=== PATIENT | female | born 1935 | race Caucasian/White ===

== ENCOUNTER 2020-08-03 14:14 | Outpatient (REF) | payer MEDICARE, OTHER, SELFPAY ==
[2020-08-03 16:18] LABS: MANUAL DIFF FLAG NO
[2020-08-03 16:22] LABS: Basophils Absolute Auto 0.1 X10*3/uL (0.0-0.2); Basophils Percent Auto 0.8 % (0-2); Eosinophils Absolute Auto 0.2 X10*3/uL (0.0-0.4); Eosinophils Percent Auto 2.8 % (0-4); Hematocrit 39.8 % (37-47); Hemoglobin 13.4 g/dl (12.0-16.0); Imm Gran Abs Auto 0.02 X10*3/uL (0.00-0.03); Imm Gran Pct Auto 0.3 % (0.0-0.4); Lymphocytes Percent Auto 41.8 % (20-40); Mean Corpuscular HGB Conc 33.7 g/dl (31.0-35.0); Mean Corpuscular Hemoglobin 33.4 pg (27.0-33.0); Mean Corpuscular Volume 99.3 fL (80-98); Mean Platelet Volume 11.5 fL (9.4-12.3); Monocytes Absolute Auto 0.7 X10*3/uL (0.1-1.2); Monocytes Percent Auto 9.7 % (2-11); Neutrophils Absolute Auto 3.2 X10*3/uL (2.0-8.3); Neutrophils Percent Auto 44.6 % (45-73); Platelet Count 264 X10*3/uL (160-400); Red Blood Count 4.01 X10*6/uL (4.20-5.50); Red Cell Distribution Width 13.2 % (11.0-16.0); White Blood Count 7.2 X10*3/uL (4.8-10.8)
[2020-08-03 16:41] LABS: Alanine Aminotransferase 19 U/L (0-31); Albumin Level 4.3 g/dL (3.5-5.0); Alkaline Phosphatase 76 U/L (39-117); Anion Gap 14 (12-20); Aspartate Amino Transferase 21 U/L (5-31); Bilirubin Total 0.9 mg/dL (0.0-1.0); Blood Urea Nitrogen 8 mg/dL (9-16); Calcium 9.5 mg/dL (8.4-10.2); Carbon Dioxide 28 mmol/L (22-29); Chloride 105 mmol/L (96-108); Estimated Glomerular Filt Rate > 60; Glucose Random 91 mg/dL (60-115); Potassium 4.6 mmol/L (3.3-5.1); Sodium 142 mmol/L (135-145); Total Protein 6.8 g/dL (6.5-8.0)
== END 2020-08-03 14:15 | disposition home or self-care (01) ==
LOC: HO.HMGCLDS 14:14
PROVIDERS: PCP Internal Medicine; Visit Provider Internal Medicine
DX: I10 Essential (primary) hypertension (principal); R19.5 Other fecal abnormalities
CPT/HCPCS: 36415; 80053; 85025

== ENCOUNTER 2021-02-14 11:18 | Outpatient (REF) | payer MEDICARE, OTHER, SELFPAY ==
[2021-02-14 13:55] LABS: MANUAL DIFF FLAG NO
[2021-02-14 14:18] LABS: Basophils Absolute Auto 0.1 X10*3/uL (0.0-0.2); Basophils Percent Auto 0.8 % (0-2); Eosinophils Absolute Auto 0.2 X10*3/uL (0.0-0.4); Eosinophils Percent Auto 2.5 % (0-4); Hematocrit 39.6 % (37-47); Hemoglobin 13.3 g/dl (12.0-16.0); Imm Gran Abs Auto 0.01 X10*3/uL (0.00-0.03); Imm Gran Pct Auto 0.2 % (0.0-0.4); Lymphocytes Absolute Auto 2.8 X10*3/uL (1.2-4.9); Lymphocytes Percent Auto 43.7 % (20-40); Mean Corpuscular HGB Conc 33.6 g/dl (31.0-35.0); Mean Corpuscular Hemoglobin 32.8 pg (27.0-33.0); Mean Corpuscular Volume 97.8 fL (80-98); Mean Platelet Volume 11.6 fL (9.4-12.3); Monocytes Absolute Auto 0.6 X10*3/uL (0.1-1.2); Monocytes Percent Auto 10.1 % (2-11); Neutrophils Absolute Auto 2.7 X10*3/uL (2.0-8.3); Neutrophils Percent Auto 42.7 % (45-73); Platelet Count 273 X10*3/uL (160-400); Red Blood Count 4.05 X10*6/uL (4.20-5.50); Red Cell Distribution Width 13.5 % (11.0-16.0); White Blood Count 6.3 X10*3/uL (4.8-10.8)
[2021-02-14 14:54] LABS: Alanine Aminotransferase 18 U/L (0-31); Albumin Level 4.2 g/dL (3.5-5.0); Alkaline Phosphatase 73 U/L (39-117); Anion Gap 14 (12-20); Aspartate Amino Transferase 22 U/L (5-31); Bilirubin Total 0.8 mg/dL (0.0-1.0); Blood Urea Nitrogen 10 mg/dL (9-16); C Reactive Protein 0.31 mg/dL (< or = 0.50); Calcium 9.6 mg/dL (8.4-10.2); Carbon Dioxide 26 mmol/L (22-29); Chloride 106 mmol/L (96-108); Cholesterol 241 mg/dL; Estimated Glomerular Filt Rate > 60; Glucose Fasting 89 mg/dL (60-99); HDL Cholesterol 61 mg/dL; LDL Cholesterol Calculated 164 mg/dl; Potassium 4.7 mmol/L (3.3-5.1); Sodium 141 mmol/L (135-145); Total Protein 6.5 g/dL (6.5-8.0); Triglycerides 81 mg/dL
[2021-02-14 15:16] LABS: Vitamin D 25-OH Total 51.8 ng/mL (>30)
== END 2021-02-14 11:19 | disposition home or self-care (01) ==
LOC: HO.HMGCLDS 11:18
PROVIDERS: PCP Internal Medicine; Visit Provider Internal Medicine
DX: M19.90 Unspecified osteoarthritis, unspecified site (principal); I10 Essential (primary) hypertension; E78.00 Pure hypercholesterolemia, unspecified; M81.0 Age-related osteoporosis without current pathological fracture; R19.5 Other fecal abnormalities
CPT/HCPCS: 36415; 80053; 80061; 82306; 85025; 86140

== ENCOUNTER 2021-07-18 11:33 | Outpatient (REF) | payer MEDICARE, OTHER, SELFPAY ==
[2021-07-18 14:03] LABS: Cholesterol 240 mg/dL; HDL Cholesterol 57 mg/dL; LDL Cholesterol Calculated 165 mg/dl; Triglycerides 91 mg/dL
== END 2021-07-18 11:34 | disposition home or self-care (01) ==
LOC: HO.HMGCLDS 11:33
PROVIDERS: PCP Internal Medicine; Visit Provider Internal Medicine
DX: E78.00 Pure hypercholesterolemia, unspecified (principal)
CPT/HCPCS: 36415; 80061

== ENCOUNTER 2022-01-14 11:01 | Outpatient (REF) | payer MEDICARE, OTHER, SELFPAY ==
[2022-01-14 14:00] LABS: MANUAL DIFF FLAG NO
[2022-01-14 14:06] LABS: Basophils Absolute Auto 0.1 X10*3/uL (0.0-0.2); Basophils Percent Auto 1.1 % (0-2); Eosinophils Absolute Auto 0.2 X10*3/uL (0.0-0.4); Eosinophils Percent Auto 3.1 % (0-4); Hematocrit 38.1 % (37.0-47.0); Hemoglobin 12.7 g/dl (12.0-16.0); Imm Gran Abs Auto 0.01 X10*3/uL (0.00-0.03); Imm Gran Pct Auto 0.2 % (0.0-0.4); Lymphocytes Absolute Auto 2.3 X10*3/uL (1.2-4.9); Lymphocytes Percent Auto 35.3 % (20-40); Mean Corpuscular HGB Conc 33.3 g/dl (31.0-35.0); Mean Corpuscular Hemoglobin 33.2 pg (27.0-33.0); Mean Corpuscular Volume 99.7 fL (80.0-98.0); Monocytes Absolute Auto 0.6 X10*3/uL (0.1-1.2); Monocytes Percent Auto 9.6 % (2-11); Neutrophils Absolute Auto 3.3 x10*3/uL (2.0-8.3); Neutrophils Percent Auto 50.7 % (45-73); Platelet Count 309 X10*3/uL (160-400); Red Blood Count 3.82 X10*6/uL (4.20-5.50); Red Cell Distribution Width 13.4 % (11.0-16.0); White Blood Count 6.5 X10*3/uL (4.8-10.8)
[2022-01-14 14:20] LABS: Anion Gap 14 (12-20); Blood Urea Nitrogen 9 mg/dL (9-16); Calcium 9.1 mg/dL (8.4-10.2); Carbon Dioxide 26 mmol/L (22-29); Chloride 104 mmol/L (96-108); Estimated Glomerular Filt Rate > 60; Glucose Random 95 mg/dL (60-115); Potassium 4.1 mmol/L (3.3-5.1); Sodium 140 mmol/L (135-145)
== END 2022-01-14 11:02 | disposition home or self-care (01) ==
LOC: HO.HMGCLDS 11:01
PROVIDERS: PCP Internal Medicine; Visit Provider Internal Medicine
DX: I10 Essential (primary) hypertension (principal); E78.00 Pure hypercholesterolemia, unspecified; M19.90 Unspecified osteoarthritis, unspecified site
CPT/HCPCS: 36415; 80048; 85025

== ENCOUNTER 2023-01-13 10:53 | Outpatient (REF) | payer MEDICARE, OTHER, SELFPAY ==
[2023-01-13 13:04] LABS: MANUAL DIFF FLAG NO
[2023-01-13 13:15] LABS: Basophils Absolute Auto 0.1 X10*3/uL (0.0-0.2); Basophils Percent Auto 1.2 % (0-2); Eosinophils Absolute Auto 0.1 X10*3/uL (0.0-0.4); Eosinophils Percent Auto 2.3 % (0-4); Hemoglobin 13.2 g/dl (12.0-16.0); Imm Gran Abs Auto 0.01 X10*3/uL (0.00-0.03); Imm Gran Pct Auto 0.2 % (0.0-0.4); Lymphocytes Absolute Auto 2.2 X10*3/uL (1.2-4.9); Lymphocytes Percent Auto 36.5 % (20-40); Mean Corpuscular HGB Conc 33.8 g/dl (31.0-35.0); Mean Corpuscular Hemoglobin 33.2 pg (27.0-33.0); Mean Corpuscular Volume 98.2 fL (80.0-98.0); Mean Platelet Volume 10.9 fL (9.4-12.3); Monocytes Absolute Auto 0.7 X10*3/uL (0.1-1.2); Monocytes Percent Auto 10.7 % (2-11); Neutrophils Percent Auto 49.1 % (45-73); Platelet Count 281 X10*3/uL (160-400); Red Blood Count 3.97 X10*6/uL (4.20-5.50); Red Cell Distribution Width 13.5 % (11.0-16.0); White Blood Count 6.1 X10*3/uL (4.8-10.8)
[2023-01-13 13:36] LABS: Alanine Aminotransferase 10 U/L (0-31); Alkaline Phosphatase 63 U/L (39-117); Anion Gap 15 (12-20); Aspartate Amino Transferase 16 U/L (5-31); Bilirubin Total 0.8 mg/dL (0.0-1.0); Blood Urea Nitrogen 9 mg/dL (9-16); Calcium 9.4 mg/dL (8.4-10.2); Carbon Dioxide 24 mmol/L (22-29); Chloride 106 mmol/L (96-108); Cholesterol 235 mg/dL (<200); Estimated Glomerular Filt Rate > 60; Glucose Random 91 mg/dL (60-115); Potassium 3.8 mmol/L (3.3-5.1); Sodium 141 mmol/L (135-145); Total Protein 6.6 g/dL (6.5-8.0)
== END 2023-01-13 10:54 | disposition home or self-care (01) ==
LOC: HO.HMGCLDS 10:53
PROVIDERS: PCP Internal Medicine; Visit Provider Internal Medicine
DX: I10 Essential (primary) hypertension (principal); E78.00 Pure hypercholesterolemia, unspecified
CPT/HCPCS: 36415; 80053; 82465; 85025

== ENCOUNTER 2023-02-01 10:01 | Outpatient (REF) | payer MEDICARE, OTHER, SELFPAY ==
[2023-02-01 11:46] LABS: Cholesterol 236 mg/dL (<200); HDL Cholesterol 70 mg/dL (>40); LDL Cholesterol Calculated 152 mg/dL (<100); Triglycerides 72 mg/dL (<150)
== END 2023-02-01 10:02 | disposition home or self-care (01) ==
LOC: HO.HMGCLDS 10:01
PROVIDERS: PCP Internal Medicine; Visit Provider Internal Medicine
DX: E78.00 Pure hypercholesterolemia, unspecified (principal)
CPT/HCPCS: 36415; 80061

== ENCOUNTER → 2023-09-04 10:43 | Outpatient (REF) | payer MEDICARE, OTHER, SELFPAY ==
--- NOTE | 2023-09-04 10:47 | CA_ITS ---
Transthoracic Echocardiogram Patient (Last, First, Middle): Avani Lopez Maya Gender: Female Date of : 1935 Age: 87 Procedure Date: 09/04/2023 Procedure Type: Transthoracic Echocardiogram Location: OP Height: 162.56 cm Weight: 68.04 kg BSA: 1.73 m2 Heart Rate: bpm BP: 138 / 82 mmHg Glass Checker: TO Referring MD: Bassam Contreras MD Supervisor Transferring And Boxing: Ezequiel Montelongo MD Symptoms: 145.10 RBBB 149,9 CA ARRHY Study Quality: Fair ECG Rhythm: Sinus Conclusions: - 1. Normal LV ejection fraction 60 65% with impaired relaxation filling pattern 2. Mildly dilated left atrium 3. Mild aortic regurgitation 4. Upper limits of normal ascending aortic size 5. No gross pericardial effusion Findings Procedure Information The study quality is limited by the presence of bandages. Left Ventricle Normal left ventricular size, thickness, and systolic function. The visually estimated ejection fraction is between 60-65%. Spectral Doppler is indicative of an impaired relaxation filling pattern. E/E prime ratio is between 8 and 15 consistent with indeterminate filling pressures. Right Ventricle Normal right ventricular cavity size and systolic function. Atria The left atrium is mildly dilated. There is no evidence of interatrial shunt. The right atrium is likely dilated. Aortic Valve There is mild calcification of the aortic valve. There is mild thickening of the aortic valve. There is no aortic valve stenosis. There is mild aortic valve regurgitation. Mitral Valve There is mild anterior and posterior mitral leaflet thickening. There is mild mitral annular calcification. There is trace mitral valve regurgitation. There is no mitral valve stenosis. Pulmonic Valve The pulmonic valve is likely normal. There is trace pulmonic valve regurgitation. Tricuspid Valve Normal tricuspid valve structure. Tricuspid regurgitation envelope is inadequate for calculation of right ventricular systolic pressure. Normal right atrial pressure. Great Vessels The pulmonary artery was not well visualized. Small plaque is seen in the sino tubular ridge. Venous The inferior vena cava is normal in size and collapses greater than 50% with inspiration. Pericardium/Pleural There is no evidence of pericardial effusion. Prior Study Comparison No prior study available for comparison. Measurements 2D Linear Measurements IVSd: 0.82 0.6-0.9/0.6-1.0 cm LVIDd: 5.18 3.9-5.3/4.2-5.9 cm LVIDd Index: 2.99 2.4-3.2/2.2-3.1 cm/m2 LVIDs: 3.64 2.0-3.6 cm LVPWd: 0.76 0.7-1.1 cm LA Diam: 3.90 2.7-3.8/3.0-4.0 cm LAIDs Index: 2.25 1.5-2.3 cm/m2 LV Mass: 177.58 67-162/88-224 g LV Mass Index: 102.65 43-95/49-115 g/m2 LVOT Diam: 1.90 3.0+(-)1.3 cm 2D Systolic Function EF 4C: 65.80 >55% EF 2C: 58.20 >55% EF BiP: 62.00 >55% Mitral Valve MV VTI: 0.28 MV Pk Dominick: 1.06 MV Mn Dominick: 0.61 MV Pk Grad: 4.00 MV Mn Grad: 2.00 MV Pk E: 0.81 MV PK A: 0.96 MV Decel Time: 264.00 E/A: 0.80 E'Lateral: 6.20 E'Medial: 4.35 E/E' Med: 18.50 E/E' Lat: 13.00 PHT: 77.00 MVA PHT: 2.86 MVA Continuity: 2.29 Decel Fentress: 3.05 Aortic Valve AoV Pk Dominick: 1.58 AoV Mn Dominick: 1.08 AoV VTI: 0.32 AoV Pk Grad: 10.00 Aov Mn Grad: 5.00 ISAIAH Cont.VTI: 2.02 LVOT LVOT Pk Dominick: 1.02 LVOT Mn Dominick: 0.62 LVOT VTI: 0.23 LVOT Pk Grad: 4.00 LVOT Mn Grad: 2.00 LVOT Diam: 1.90 LVOT Area: 2.84 Diastolic Function MV Pk E: 0.81 MV Pk A: 0.96 E/A: 0.80 E'Medial: 4.35 E/E' Med: 18.50 E' Laterial: 6.20 E/E' Lat: 13.00 Right Ventricle TAPSE (mm): 18.30 TVS' Dominick: 12.10 Tricuspid Valve RA Press: 3.00 Great Vessels Aorta Sinus of Valsalva: 3.24 2.0-3.5 cm Ao Asc: 3.60 2.1-3.4 cm Updated in Other Vendor System with Status of Final Ezequiel Montelongo MD electronically signed on 09/05/2023 9:36:07 AM with status of Final
== END ==
LOC: HO.CARD 10:43
PROVIDERS: PCP Internal Medicine; Visit Provider Internal Medicine
DX: I45.10 Unspecified right bundle-branch block (principal); I49.9 Cardiac arrhythmia, unspecified
CPT/HCPCS: 93306

== ENCOUNTER → 2023-09-04 10:47 | Outpatient (BNV) | payer MEDICARE, OTHER, SELFPAY | PROVIDERS: PCP Internal Medicine; Visit Provider Internal Medicine Cardiovascular Disease | DX: I35.8 Other nonrheumatic aortic valve disorders (principal); I35.1 Nonrheumatic aortic (valve) insufficiency; I34.81 Nonrheumatic mitral (valve) annulus calcification | CPT/HCPCS: 93306 ==

== ENCOUNTER 2023-11-03 12:28 | Outpatient (AMB) | payer MEDICARE, OTHER, SELFPAY ==
--- NOTE | 2023-11-03 12:33 | A.OFFVIS_ITS ---
Vital Signs 11/03/23 12:40 Weight 146 lb 6.191 oz BP 128/66 Blood Pressure Location Lt brachial Position Sitting Pulse 62 Pulse Source Pulse Oximeter Intake Visit Reasons: CORRECTIONAL CASE RECORDS SUPERVISOR/Dr. 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 Patient herself does not have any cardiac history like coronary artery disease or myocardial infarction or cardiomyopathy or any other cardiac concerns. She also denies any specific symptoms like angina or shortness of breath or palpitations. It appears that EKG had shown right bundle-branch block and hence she is referred here. She is on atenolol. Unclear why. Hypertension listed in PCP note and hence that might be a reason. She also has PACs on the EKG and that might be another reason for its use as well. Patient states she has been on it for more than 10 years. [facility] Medical History (Updated 11/03/23 @ 13:05 by Yosi Walker MD) Essential hypertension Family History (Updated 11/03/23 @ 12:57 by Yosi Walker MD) Father No problems noted. Mother Breast cancer Social History (Updated 11/03/23 @ 12:44 by Tanya Salas CMA) Alcohol intake: current Comment: social drinker Patient Tobacco Use Status: Never used Tobacco Review of Systems Const Denies chills, Denies daytime sleepiness, Denies fatigue, Denies fever(s), Denies poor appetite, Denies snoring, Denies stops breathing during sleep, Denies weakness, Denies weight gain and Denies weight loss Eyes Denies loss of vision ENT Denies dizziness and Reports hearing loss Card Denies chest pain, Denies irregular heart rhythm, Denies claudication, Denies le g edema, Denies lightheadedness, Denies palpitations, Denies dyspnea on exertion and Denies orthopnea Resp Denies cough, Denies excessive phlegm production, Denies dyspnea on exertion, Denies snoring and Denies wheezing GI Denies abdominal pain, Denies hematochezia, Denies change in bowel habits, Denies nausea and Denies vomiting Denies urinary frequency and Denies dysuria Musc Denies arthralgias, Denies muscle weakness, Denies numbness and Denies other Skin/Breast Denies nail changes and Denies rash Neuro Denies Abnormal speech present, Denies dizziness, Denies loss of vision, Denies memory loss, Denies numbness and Denies weakness Psych Denies depression and Denies memory loss Endo Denies fatigue and Denies palpitations Jose Miguel/Lymph Denies easy bruising Aller/Immun Denies wheezing Physical Exam Vital Signs: Last Vital Signs Pulse 62 11/03/23 12:40 BP 128/66 11/03/23 12:40 Const General: comfortable and no acute distress Orientation/consciousness: patient oriented x3 HEENT Other: Unremarkable Head: Yes normal to inspection Neck Neck: Yes normal visual inspection Chest Chest palpation & inspection: normal inspection of the chest Resp Auscultation: clear to auscultation bilaterally Cardio Palpation: normal PMI Heart sounds: S1 normal heart sound present, S2 normal heart sound present, no gallops, no murmurs and no rubs GI Palpation (GI): Soft to palpation Back/Spine/Pelvis Other: unremarkable Skin General skin exam: no rashes or lesions noted Neuro General: patient oriented x3 Speech: No Abnormal speech present Extrem General: Yes normal to inspection Psych Mental Status: mental status grossly normal Office Procedures EKG Details: EKG with sinus rhythm at 73/Min, right bundle-branch block; T inversions in leads V1 to V3 likely related to the underlying right bundle-branch block and frequent PACs in a pattern of trigeminy. 19646-Mwfhypgxtrbttzmqh, Complete Assessment & Plan Assessment & Plan (1) Right bundle branch block: Code(s): I45.10 - Unspecified right bundle-branch block Category: Medical (2) Premature atrial contractions: Code(s): I49.1 - Atrial premature depolarization Category: Medical Plan In the recent EKG, underlying sinus rhythm with right bundle-branch block and PACs. In the recent echocardiogram, LVEF 60-65%; mild dilated left atrium and mild aortic regurgitation. Otherwise unremarkable. She has no overt cardiac symptoms. We discussed about further workup for ischemic heart disease with a stress test but she stated that she would not want anything done. We also discussed about Holter monitor because of the PACs and to assess for any other arrhythmias but again she stated that she would not want that either. Hence no specific testing ordered and no changes made in her regimen. Advised her to contact us with any ongoing concerns. Coding Level of Care Code New Pt Level 3 (55768) Diagnoses Right bundle branch block I45.10 Premature atrial contractions I49.1 CPT Codes EKG - CPT: 00728-Shkfbdfhdldyzkzgq, Complete ([id number])
[2023-11-03 12:40] VITALS: BP 128/66; PULSE 62
== END 2023-11-03 13:03 | disposition home or self-care (01) ==
PROVIDERS: PCP Internal Medicine; Visit Provider Internal Medicine
DX: I45.10 Unspecified right bundle-branch block (principal); I49.1 Atrial premature depolarization
CPT/HCPCS: 93010; 99203

== ENCOUNTER → 2023-11-03 12:28 | Outpatient (BNVA) | payer MEDICARE, OTHER, SELFPAY | PROVIDERS: PCP Internal Medicine; Visit Provider Internal Medicine | DX: I45.10 Unspecified right bundle-branch block (principal); I49.1 Atrial premature depolarization | CPT/HCPCS: 93005; 99202 ==

== ENCOUNTER 2024-02-25 10:57 | Outpatient (REF) | payer MEDICARE, OTHER, SELFPAY ==
[2024-02-25 13:14] LABS: MANUAL DIFF FLAG NO
[2024-02-25 13:26] LABS: Basophils Absolute Auto 0.1 X10*3/uL (0.0-0.2); Basophils Percent Auto 1.2 % (0-2); Eosinophils Absolute Auto 0.2 X10*3/uL (0.0-0.4); Eosinophils Percent Auto 3.2 % (0-4); Hematocrit 34.2 % (37.0-47.0); Hemoglobin 11.1 g/dl (12.0-16.0); Imm Gran Abs Auto 0.02 X10*3/uL (0.00-0.03); Imm Gran Pct Auto 0.3 % (0.0-0.4); Lymphocytes Absolute Auto 2.4 X10*3/uL (1.2-4.9); Lymphocytes Percent Auto 36.7 % (20-40); Mean Corpuscular HGB Conc 32.5 g/dl (31.0-35.0); Mean Corpuscular Hemoglobin 29.2 pg (27.0-33.0); Mean Platelet Volume 11.3 fL (9.4-12.3); Monocytes Absolute Auto 0.6 X10*3/uL (0.1-1.2); Monocytes Percent Auto 9.7 % (2-11); Neutrophils Absolute Auto 3.2 x10*3/uL (2.0-8.3); Neutrophils Percent Auto 48.9 % (45-73); Platelet Count 273 X10*3/uL (160-400); Red Cell Distribution Width 16.4 % (11.0-16.0); White Blood Count 6.6 X10*3/uL (4.8-10.8)
[2024-02-25 13:55] LABS: Anion Gap 10 (12-20)
[2024-02-25 14:04] LABS: Alanine Aminotransferase 12 U/L (0-31); Albumin Level 3.9 g/dL (3.5-5.0); Alkaline Phosphatase 70 U/L (39-117); Aspartate Amino Transferase 19 U/L (5-31); Bilirubin Total 0.5 mg/dL (0.0-1.0); Blood Urea Nitrogen 10 mg/dL (9-16); Calcium 9.4 mg/dL (8.4-10.2); Carbon Dioxide 27 mmol/L (22-29); Chloride 108 mmol/L (96-108); Cholesterol 230 mg/dL (<200); Estimated Glomerular Filt Rate > 60; Glucose Fasting 94 mg/dL (60-99); HDL Cholesterol 70 mg/dL (>40); LDL Cholesterol Calculated 148 mg/dL (<100); Potassium 4.1 mmol/L (3.3-5.1); Sodium 141 mmol/L (135-145); Thyroid Stimulating Hormone 1.27 uIU/mL (0.32-4.0); Total Protein 6.4 g/dL (6.5-8.0); Triglycerides 63 mg/dL (<150)
== END 2024-02-25 10:58 | disposition home or self-care (01) ==
LOC: HO.HMGCLDS 10:57
PROVIDERS: PCP Internal Medicine; Visit Provider Internal Medicine
DX: I10 Essential (primary) hypertension (principal); E78.00 Pure hypercholesterolemia, unspecified; M19.90 Unspecified osteoarthritis, unspecified site; R19.5 Other fecal abnormalities
CPT/HCPCS: 36415; 80053; 80061; 82378; 84443; 85025

== ENCOUNTER 2024-03-04 13:56 | Outpatient (REF) | payer MEDICARE, OTHER, SELFPAY | END 2024-03-04 13:57 | disposition home or self-care (01) | LOC: HO.SH 13:56 | PROVIDERS: Visit Provider Internal Medicine | DX: Z01.118 Encounter for examination of ears and hearing with other abnormal findings (principal); H90.3 Sensorineural hearing loss, bilateral | CPT/HCPCS: 92557 ==

== ENCOUNTER 2024-03-15 12:35 | Outpatient (REF) | payer SELFPAY | END 2024-03-15 12:36 | disposition home or self-care (01) | LOC: HO.HAP 12:35 | PROVIDERS: Visit Provider Internal Medicine | DX: Z46.1 Encounter for fitting and adjustment of hearing aid (principal); H90.3 Sensorineural hearing loss, bilateral | CPT/HCPCS: 92590 ==

== ENCOUNTER 2024-04-26 14:11 | Outpatient (REF) | payer MEDICARE, OTHER, SELFPAY ==
--- NOTE | 2024-04-27 08:07 | MHC.AU.HA2 ---
Hearing Instrument Fitting- Adult- Binaural Date of Visit: 04/26/23 Hearing Instruments Dispensed: Right Ear: Manuel, Model, Color, Serial Number: Giuseppe Arce [address] KEEN S#[id number] Maintenance Worker Repair Warranty: 04/22/2027 Maintenance Worker Loss and Damage Warranty: 04/22/2027 [facility] Service Plan: n/a Battery Size: Rechargeable Type of Wax Guard: hearclear Left Ear: Model Manuel, Color, Serial Number: Giuseppe Arce [address] KEEN S#[id number] Maintenance Worker Repair Warranty: 04/22/2027 Maintenance Worker Loss and Damage Warranty: 04/22/2027 [facility] Service Plan: n/a Battery Size: Rechargeable Type of Wax Guard: hearclear Accessories/Assistive Technology: Giuseppe custom deboning team leader S#[id number] Warranty 04/22/2027 Summary of Fitting: Maya visited for fitting with new custom rechargeable hearing aids. Programmed and verified to DSL 5.0 real ear targets. Feedback notch noted at 500 Hz left ear. Reduced gain in both ears for patient comfort as she was initially quite overwhelmed, particularly by her own voice. Discussed adjustment period at length, patient demonstrated understanding. Practiced insertion/removal, charging. Pt initially requested VC active but was not able to insert aids without accidentally pressing; VC AND POWER ON/OFF IS DISABLED. Will review cleaning/wax guards at follow up, revisit push button. Ordering removal lines from [facility] to have at follow up in case of removal difficulty given tight fit. Reviewed purchase agreement, patient signed medical waiver as she does not wish to see ENT. Billing [facility] directly per KG, patient sent to front to pay her portion. Recommended follow up in 2-3 weeks but Maya does not like to have more than one dr appt per week, will not return for closer to 4-5 weeks. Encouraged to call if issues arise, pt aware of return period. Recommendations: Recommendations: A hearing instrument follow-up is recommended in 2-3 weeks. Diagnosis Code(s): Primary Diagnosis: H90.A32 Mixed HL, Unilateral, Left Ear, W/Restricted Contralateral Secondary Diagnosis: H90.A21 SNHL, Unilateral Right Ear, W/Restricted Contralateral Hearing Signature: Provider: Rosalia Chua, [facility]
== END 2024-04-26 14:12 | disposition home or self-care (01) ==
LOC: HO.HAP 14:11
PROVIDERS: Visit Provider Internal Medicine
DX: Z46.1 Encounter for fitting and adjustment of hearing aid (principal); H90.A32 Mixed conductive and sensorineural hearing loss, unilateral, left ear with restricted hearing on the contralateral side
CPT/HCPCS: V5259; V5299

== ENCOUNTER 2024-05-20 13:50 | Outpatient (REF) | payer SELFPAY ==
--- OUTSIDE RECORDS SUMMARY | 2024-05-20 17:40 | XMS_ITS ---
Author Organization [facility] stacy [place] Address [address] [place] [place] [address] Care Team Providers Care [employer] Operator Name Role Phone Bassam Contreras MD Primary Care Provider Unavaila Cruz Sun Unavailable [phone] Allergies Allergen (clinical drug ingredient) Drug/Non Drug Allergy documented on EMR Reaction Allergy Type Onset Date Status erythromycin Erythromycin Unknown Drug Allergy A ctive REASON FOR VISIT At Risk Footcare, Painful Nail(s) aggravated by shoes and causing difficulty standing/walking. Medications Medication SIG (Take, Route, Fr equency, Duration) Notes Start Date End Date Status Atenolol 25 MG 1 tablet Orally Once a day Active Multivitamin Active Social History Tobacco Use: Social History Observation Description Date Details (start date - stop date) Never Smoker NA - NA Tobacco Use/Smoking Question Answer Notes Are you a: nonsmoker Additional Findings: Tobacco Non-User Current no n-smoker Alcohol Screen Question Answer Notes Did you have a drink containing alcohol in the p ast year? Yes Points 0 Interpretation Negative Tobacco use other than smoking: Question Answer Notes Are you an other tobacco user? No Vital Signs Height 5 ft 4 in in 02/03/2024 Weight 147 lbs 02/03/2024 BMI 25.23 kg/m2 02/03/2024 Blood pressure systolic 130 mm Hg 02/03/20 24 Blood pressure diastolic 55 mm Hg 024 Procedures Procedure Date Ordered Date Performed Result Body Sit e 37686-SLFDVWT NAIL, 6 OR MORE 02/03/2024 N/A 39245-OLTS SKIN LESIONS, 2 TO 4 02/03/2024 N/A Encounters Encounter Location Date Provider Diagnosis [facility] [address] [address] 02/03/2024 Cruz Ansari Atherosclerosis of [place] artery of both lower extremities, with unspecified presence of clinical manifestation I70.203 ; Tinea unguium B35.1 ; Pain in right toe(s) M79.674 and Pain in left toe(s) M79.675 Assessments Encounter Date Diagnosis (ICD Code) Assessment Notes Treatment Notes Treatment Clinical Notes Section Notes 02/03/2024 Atherosclerosis of [place] artery of both lower extremities, with unspecified presence of clinical manifestation (ICD-10 - I70.203) Q7(A), Q8(2B), Q9(1B,2C) 02/03/2024 Tinea unguium (ICD-10 - B35.1) 02/03/2024 Pain in right toe(s) (ICD-10 - M79.674) 02/03/2024 Pain in left toe(s) (ICD-10 - M79.675) Plan Of Treatment Pending Test Test Name Order Date 46459-YFUOSLL NAIL, 6 OR MORE 02/03/2024 58526-EHCB SKIN LESIONS, 2 TO 4 02/03/20 24 Next Appt Details Follow Up: prn, Reason: Provider Name:Cruz Ansari , 08/10/2024 11:30:00 AM, [address] [place] [address], [id number], Procedure Notes * Category Sub-Category Detail Notes Debride Nail 6-10 Nail debridement Performance o f this nail treatment by a nonprofessional would put this patients foot and overall health at risk. Therefore, nail debridement was performed extensively to reduce/remove overall nail length, girth, thickness, subungual debris, and necrotic tissue, by manual and/or electrical means through the use of a nail nipper and/or dremel-type watch crystal grinder, to a more viable healthy nail plate or bed tissue 6-10. Silver nitrate used for any petechial bleeding as necessary. Definitive antifungal treatment options have been reviewed and discussed with the patient. The patient chooses, no pharmaceutical tx - 90377 Keratoma Treatment Parring or Cutting o f Benign Hyperkeratotic Lesion(s) (-56) 2-4 Lesions - The Benign hyperkeratotic lesions, as described above were pared, and/or cut utilizing a sterile 15 blade, tissue nippers, and/or dremel - 04043 , Q8 Progress Notes * Avani MARTINnneDOB: [birth year] (88 yo F)Acc No.[id number]:02/03/2024 Progress Note Patient:Avani Brooks Provider:?Cruz Ansari DPM :1935???Age:88 Y???Sex:Female D ate:02/03/2024 Address:[address] [place], [place] [address] Pcp:Bassam Contreras MD Subjective: * Chief Complaints: * ???At Risk FootcarePainful N ail(s) aggravated by shoes and causing difficulty standing/walking. * HPI: ???At Risk footcare:?Pt States Last PCP Visit:?Date?07/30/2023 * ROS:?General/Constitutional:?Nausea?denies.?Vomiting?denies.?Hunger Thirst?denies.?Loss appetite?denies.?Chills?denies.?Fatigue?denies.?Fever?denies.?Night Sweats?denies.?Unexplained weight loss?denies.?Unexplained weight gain?denies.?HEENTM:?Dentures?denies.?Dizziness?denies.?Glasses/contacts?admits.?Retinopathy?de nies.?Blurred/double vision?denies.?TMJ?denies.?Discharge/drainage?denies.?Implants?denies.?Sore throat?denies.?Dental implants?denies.?Hard of hearing ?denies.?Difficulty chewing/swallowing/speaking?denies.?Nose bleeds?denies.?Sore mouth?denies.?Respiratory:?On Oxygen?denies.?Pneumonia/pleurisy?denies.?Bronchitis?denies.?Emphysema?denies.?C oughing?denies.?Cough blood?denies.?Shortness of breath?denies.?Wheezing?denies.?Cardiovascular:?Pacemaker?denies.?MVP?denies.?WPW?denies.?CHF?denies.?Heart attack?denies.?Septal defect?denies.?Rapid beat?denies.?Chest pain ?denies.?Atrial Fib.?denies.?Murmur/Palpitations?denies.?Gastrointestinal:?Hemorrhoids?denies.?Stomach/Abdominal pain?denies.?Dark blood stool?denies.?Irritable bowel ?denies.?Constipation?denies.?Diarrhea?denies.?Hematology:?Swelling?admits.?Clots?denies.?Varicose Veins?admits.?Bruising?denies.?Bleeding problem?denies.?Genitourinary:?Blood urine?denies.?Frequent/Painfu/urination/bladder control?denies.?Kidney stones?denies.?Infection (UTI)?denies.?Nephropathy?denies.?sex trans dis (STD)?denies.?Prostate?denies.?Musculoskeletal:?Hammertoes?admits.?Bunions?admits.?Back Pain?denies.?Muscle Cramps/ Resting?denies.?Muscle cramps / walking?denies.?Generalized aches and pains?denies.?Weakness?denies.?Integ.:?Van?admits.?Scars?denies.?Corns/calluses?admits.?Ingrown nails?admits.?Painful nails?admits.?Open Sores?denies.?Rashes?denies.?Neurologic:?Difficulty sleeping?denies.?Brain disorder?denies.?Numbness?denies.?Balance trouble?denies.?Confusion?denies.?Fainting/blackouts?denies.?Tingling?denies.?Tr emors?denies.? * Medical History:? * Surgical History:?Denies Pas t Surgical History * Hospitalization/Major Diagno stic Procedure:?Denies Past Hospitalization * Family History:?Mother: dece ased.?Father: .? * Social History:?Tobacco Use:?Tobacco Use/Smoking?Are you a:?nonsmoker ?Additional Findings: Tobacco Non-User?Current non-smoker ?Tobacco use other than smoking?Are you an other tobacco user??No ???Drugs/Alcohol:?Drugs?Have you used drugs other than those for medical reasons in the past 12 months??No ?Alcohol Screen?Did you have a drink containing alcohol in the past year??Yes ?Points?0 ?Interpretation?Negative ???Miscellaneous:?Caffeine: yes, 2-3 cups per day. ?Children: yes, 1. ?no Exercise. ?Marital status: . ?Occupation: Unemployed. * Medications:?TakingMultivita min Atenolol 25 MG Tablet 1 tablet Orally Once a dayMedication List reviewed and reconciled with the patientTaking Multivitamin Taking Atenolol 25 MG Tablet 1 tablet Orally Once a dayMedication List reviewed and reconciled with the patient * Allergies:?Erythromycinyes[A llergies Verified] Objective: * Vitals:?Ht: 5 ft 4 in, Wt: 1 47, BMI: 25.23, Shoe size: 8.5W-9, BP: 130/55 mm Hg, Ht-cm: 162.56 cm, Wt-k.68 kg. * Examination: ???Vascular: ?DP PULSES(B):? 0/4, B/L.?PT PULSES(B):? 0/4, B/L.?CAPILLARY FILL TIME:? delayed, all digits, B/L.?TROPHIC CONDITION-TEXTURE/ELASTICITY/TURGOR/HAIR GROWTH(B):? decreased, with sparse to absent hair growth, B/L.?TEMPERTURE GRADIENT(C):? decreased, cool to cool, proximal to distal, B/L.?PIGMENTATION:?mottled, B/L.?EDEMA(C):?1/4 , non-pitting , without aching pain , Leg(s) , Ankle(s) , Foot , B/L.?CLAUDICATION(C):?denies, B/L.?REST PAIN:?denies, B/L.?Nails: ?NAILS are:? Elongated, overgrown, dystrophic, lytic, greater than 3mm thick, discolored and friable with crumbly malodorous subungual debris, with pain on palpation, T1, T2, T3, T6, T7, T8, remaining nails are elongated, overgrown, dystrophic.?Dermatologic: ?SKIN FINDINGS:?Skin exam reveals Keratotic lesion(s) located at , Plantar, T2, SUB MTH (s) , 1 , B/L.? Assessment: * Assessment: 1.?Tinea unguium - B35.1?2.? Atherosclerosis of [place] artery of both lower extremities, with unspecified presence of clinical manifestation - I70.203, Q7(A), Q8(2B), Q9(1B,2C)?3.?Pain in right toe(s) - M79.674?4.?Pain in left toe(s) - M79.675? Plan: * Treatment: 2.?Atherosclerosis of [place] artery of both lower extremities, with unspecified presence of clinical manifestation?Procedure: 88248-PZNE SKIN LESIONS, 2 TO 4 * Procedures:?Debride Nail 6-10:?Nail debridement?Performance of this nail treatment by a nonprofessional would put this patients foot and overall health at risk. Therefore, nail debridement was performed extensively to reduce/remove overall nail length, girth, thickness, subungual debris, and necrotic tissue, by manual and/or electrical means through the use of a nail nipper and/or dremel-type watch crystal grinder, to a more viable healthy nail plate or bed tissue 6-10. Silver nitrate used for any petechial bleeding as necessary. Definitive antifungal treatment options have been reviewed and discussed with the patient. The patient chooses, no pharmaceutical tx - 64510.?Keratoma Treatment:?Parring or Cutting of Benign Hyperkeratotic Lesion(s)?(-56) 2-4 Lesions - The Benign hyperkeratotic lesions, as described above were pared, and/or cut utilizing a sterile 15 blade, tissue nippers, and/or dremel - 43265 , Q8.? * Procedure Codes:?59473 DEBRI DE NAIL, 6 OR MORE, Modifiers: XS 25205 TRIM SKIN LESIONS, 2 TO 4, Modifiers: XS , Q8 * Follow Up:?prn * Images: * Sign off status: Completed true * Provider:?Cruz Ansari DPM Date:?2023 Generated for Apoorva sharif/Jonathan/Pippa on:?05/20/2024 05:40 PM EST History and Physical Notes * HPI (History of Present Illness) Category Sub-Category Detail Notes Category Not es At Risk footcare Pt States Last PCP Visit: Date: Examination Category Sub-Category Detail Notes Category Not es Dermatologic SKIN FINDINGS: Skin exam reveal s Keratotic lesion(s) located at , Plantar, T2, SUB MTH (s) , 1 , B/L Vascular DP PULSES (B): 0/4, B/L PT PULSES (B): 0/4, B/L CAPILLARY FILL TIME: delayed, all digits , B/L TEMPERTURE GRADIENT (C): decreased, cool to cool, proximal to distal, B/L TROPHIC CONDITION-TEXTURE/ELASTICITY/TURGOR/HAIR GROWTH (B): decreased, with sparse to absent hair gr owth, B/L EDEMA (C): 1/4 , non-pitting , without aching pain , Leg(s) , Ankle(s) , Foot , B/L CLAUDICATION (C): denies, B/L REST PAIN: denies, B/L PIGMENTATION: mottled, B/L Nails NAILS are: Elongated, overg rown, dystrophic, lytic, greater than 3mm thick, discolored and friable with crumbly malodorous subungual debris, with pain on palpation, T1, T2, T3, T6, T7, T8, remaining nails are elongated, overgrown, dystrophic
--- OUTSIDE RECORDS SUMMARY | 2024-05-20 17:40 | XMS_ITS | Patient Health Record ---
Author Organization [facility] Address [address] [place] [address] Care Team Providers Care Cement Conveyor Operator Name Role Phone Ben LUJAN, Bassam Primary Care Provider Cruz Weathers Unavailable [phone] Alfa Higgins Unavailable [phone] Allergies Allergen (clinical drug ingredient) Drug/Non Drug Allergy documented on EMR Reaction Allergy Type Onset Date Status Erythromycin Unknown Drug Allergy Acti ve Reason For Referral No Information Medications Medication SIG (Take, Route, Fr equency, Duration) Notes Start Date End Date Status Atenolol 25 MG 1 tablet Orally Once a day Active Multivitamin Active Social History Tobacco Use: Social History Observation Description Date Details (start date - stop date) Never Smoker NA - NA Alcohol Screen Question Answer Notes Did you have a drink containing alcohol in the p ast year? Yes Points 0 Interpretation Negative Tobacco use other than smoking: Question Answer Notes Are you an other tobacco user? No Tobacco Control (Standard) Question Answer Notes Tobacco use: Nonsmoker Additional Findings: Tobacco non-user Current no nsmoker Problems Problem Type SNOMED Code ICD Code Onset Dates Problem Status W/U Status Risk Notes Problem Atherosclerosis of nikolski arteries of the extremities ([id number]) Atherosclerosis of nikolski artery of both lower extremities, with unspecified presence of clinical manifestation (I70.203) Active confirmed Q7(A), Q8(2B), Q9(1B,2 C) Vital Signs Blood pressure diastolic 55 mm Hg 02/03/2024 Height 5 ft 4 in in 02/03/2024 Blood pressure systolic 130 mm Hg 02/03/2024 Weight 147 lbs 02/03/2024 BMI 25.23 kg/m2 02/03/2024 Procedures Procedure Date Ordered Date Performed Result Body Sit e 13994-VYVJSOU NAIL, 6 OR MORE 10/28/2023 N/A 59688-LAWA SKIN LESIONS, 2 TO 4 10/28/2023 N/A 88112-AFMXQDT NAIL, 6 OR MORE 02/03/2024 N/A 14491-SJXI SKIN LESIONS, 2 TO 4 02/03/2024 N/A 69623-YYOICWT NAIL, 6 OR MORE 05/04/2024 N/A 62727-QRSG SKIN LESIONS, 2 TO 4 05/04/2024 N/A Encounters Encounter Location Date Provider Diagnosis [address] [address] 10/28/2023 Cruz Ansari Atherosclerosis of nikolski artery of both lower extremities, with unspecified presence of clinical manifestation I70.203 ; Tinea unguium B35.1 ; Pain in right toe(s) M79.674 ; Pain in left toe(s) M79.675 ; Pain in left ankle and joints of left foot M25.572 ; Bursitis of left foot M77.52 ; Hallux valgus (acquired), left foot M20.12 ; Pain in right ankle and joints of right foot M25.571 ; Bursitis of right foot M77.51 and Hallux valgus (acquired), right foot M20.[address] [address] 02/03/2024 Cruz Ansari Atherosclerosis of nikolski artery of both lower extremities, with unspecified presence of clinical manifestation I70.203 ; Tinea unguium B35.1 ; Pain in right toe(s) M79.674 and Pain in left toe(s) M79.[address] [address] 05/04/2024 Cruz Ansari Atherosclerosis of nikolski artery of both lower extremities, with unspecified presence of clinical manifestation I70.203 ; Tinea unguium B35.1 ; Pain in right toe(s) M79.674 and Pain in left toe(s) M79.[address] [address] 09/24/2023 Cruz Ansari Assessments Encounter Date Diagnosis (ICD Code) Assessment Notes Treatment Notes Treatment Clinical Notes Section Notes 10/28/2023 Tinea unguium (ICD-10 - B35.1) 10/28/2023 Atherosclerosis of nikolski artery of both lower extremities, with unspecified presence of clinical manifestation (ICD-10 - I70.203) 02/03/2024 Tinea unguium (ICD-10 - B35.1) 02/03/2024 Atherosclerosis of nikolski artery of both lower extremities, with unspecified presence of clinical manifestation (ICD-10 - I70.203) Q7(A), Q8(2B), Q9(1B,2C) 05/04/2024 Tinea unguium (ICD-10 - B35.1) 05/04/2024 Atherosclerosis of nikolski artery of both lower extremities, with unspecified presence of clinical manifestation (ICD-10 - I70.203) Q7(A), Q8(2B), Q9(1B,2C) 05/04/2024 Pain in right toe(s) (ICD-10 - M79.674) 02/03/2024 Pain in right toe(s) (ICD-10 - M79.674) 10/28/2023 Pain in right toe(s) (ICD-10 - M79.674) 10/28/2023 Pain in left toe(s) (ICD-10 - M79.675) 02/03/2024 Pain in left toe(s) (ICD-10 - M79.675) 05/04/2024 Pain in left toe(s) (ICD-10 - M79.675) 10/28/2023 Pain in left ankle and joints of left foot (ICD-10 - M25.572) 10/28/2023 Bursitis of left foot (ICD-10 - M77.52) 10/28/2023 Hallux valgus (acquired), left foot (ICD-10 - M20.12) 10/28/2023 Pain in right ankle and joints of right foot (ICD-10 - M25.571) 10/28/2023 Bursitis of right foot (ICD-10 - M77.51) 10/28/2023 Hallux valgus (acquired), right foot (ICD-10 - M20.11) Plan Of Treatment Pending Test Test Name Order Date 80148-TGENUBD NAIL, 6 OR MORE 10/28/2023 39291-EQQDVLD NAIL, 6 OR MORE 02/03/2024 74133-CMXTBDB NAIL, 6 OR MORE 05/04/2024 11306-WNOY SKIN LESIONS, 2 TO 4 05/04/19 78260-OIAR SKIN LESIONS, 2 TO 4 02/03/20 50736-ETBO SKIN LESIONS, 2 TO 4 10/28/19 Next Appt Details Provider Name:Cruz Ansari , 08/10/2024 11:30:00 AM, [address] [facility], [place], [address], Insurance Providers Payer Name Payer Address Payer Phone Subscriber Number Group Number Insured Name Patient Relationship to Insured Coverage Start Date Coverage End Date Medicare National Govt Svcs Inc [address] [facility] [place] [address] [id number] Avani Lopez Self - patient is the insured [facility] ([facility]) [address] [place], [place] [id number] [id number] Avani Lopez Self - patient is the insured Medical (General) History Medical History History ICD Code Macular degeneration Measles Mumps Chicken pox Hypertension shots in eye every 7 weeks left Surgical History Surgery Date(Month/Year)
--- OUTSIDE RECORDS SUMMARY | 2024-05-20 17:40 | XMS_ITS ---
Author Organization [facility] Address [address] [place] [address] Care Team Providers Care Sack Department Supervisor Name Role Phone Bassam Contreras MD Primary Care Provider Unavaila Cruz Sun Unavailable [phone] Alfa Higgins [phone] Encounters Encounter Location Date Provider Diagnosis [address] [address] 10/29/2023 Alfa Higgins Plan Of Treatment Next Appt Details Provider Name:Cruz Ansari , 08/10/2024 11:30:00 AM, [address] [place] [address], [address], Progress Notes * Avani MARTINeDOB: [birth year] (88 yo F)Acc No.[id number]:10/29/2023 Progress Notes Patient:?Avani MARTIN Provider:?Alfa Higgins DPM :1935???Age:87 Y???Sex:Female D ate:10/29/2023 [facility] [address] [facility] [place] Pcp:Bassam Contreras MD Subjective: * Chief Complaints: * ??? * Medical History:? Objective: * Vitals:? Assessment: Plan: * Treatment: * Images: * The named appointment provid er may or may not be the originator of this progress note, and it is not deemed complete until electronically signed by the appointment provider. Sign off status: Pending * Provider:Doron Higgins DPM Date:? 024 Generated for Apoorva sharif/Jonathan/Pippa on:?05/20/2024 05:40 PM EST
--- OUTSIDE RECORDS SUMMARY | 2024-05-20 17:41 | XMS_ITS ---
Author Organization [facility] Address [address] [place] [address] Care Team Providers Care Business Solution Analyst Name Role Phone Bassam Contreras MD Primary Care Provider Cruz Weathers Unavailable [phone] Allergies Allergen (clinical drug ingredient) Drug/Non Drug [...] Additional Findings: Tobacco non-user Current no nsmoker Procedures Procedure Date Ordered Date Performed Result Body Sit e 52215-KNPLZDX NAIL, 6 OR MORE 05/04/2024 N/A 92662-BNYP SKIN LESIONS, 2 TO 4 05/04/2024 N/A Encounters Encounter Location Date Provider Diagnosis [facility] [address] [place] [address] 05/04/2024 Cruz Ansari Atherosclerosis of hamilton artery of both lower extremities, with unspecified presence of clinical manifestation I70.203 ; Tinea unguium B35.1 ; Pain in right toe(s) M79.674 and Pain in left toe(s) M79.675 Assessments Encounter Date Diagnosis (ICD Code) Assessment Notes Treatment Notes Treatment Clinical Notes Section Notes 05/04/2024 Atherosclerosis of hamilton artery of both lower extremities, with unspecified presence of clinical manifestation (ICD-10 - I70.203) Q7(A), Q8(2B), Q9(1B,2C) 05/04/2024 Tinea unguium (ICD-10 - B35.1) 05/04/2024 Pain in right toe(s) (ICD-10 - M79.674) 05/04/2024 Pain in left toe(s) (ICD-10 - M79.675) Plan Of Treatment Pending Test Test Name Order Date 71919-RGYQVJY NAIL, 6 OR MORE 05/04/2024 11515-JMMO SKIN LESIONS, 2 TO 4 05/04/19 25 Next Appt Details Follow Up: prn, Reason: Provider Name:Cruz Ansari , 08/10/2024 11:30:00 AM, [address] [place] [address], [phone], Procedure Notes * Category Sub-Category Detail Notes Debride Nail 6-10 Nail debridement Due to the cl inical pathology outlined in the exam findings, performance of this nail treatment is medically necessary as its management by an unskilled/untrained nonprofessional would put this patients foot and overall health at risk. Therefore, debridement to affected nail(s), as described in exam ( T1, T2, T3, T6, T7, T8), was performed exclusively by the physician of record to reduce/remove overall nail length, girth, thickness, subungual debris, and necrotic tissue, by manual and/or electrical means through the use of a nail nipper and/or dremel-type mud grinder, to a more viable healthy nail plate or bed tissue 6-10 nails in total. Silver nitrate was used for any petechial bleeding as necessary. Definitive antifungal treatment options, both pharmaceutical and surgical, have been reviewed and discussed with the patient. The patient solely prefers the use of intermittent/as needed professional debridement services for their nail condition and understands the need for additional periodic treatments to maintain effectiveness in symptomatic relief - Keratoma Treatment Parring or Cutting o f Benign Hyperkeratotic Lesion(s) (-56) 2-4 Lesions - Due to the at risk nature of the patients medical condition as documented in the exam findings, performance of this keratoderma treatment is medically necessary as its management by an unskilled/untrained nonprofessional would put this patients foot and overall health at risk. Therefore, the benign hyperkeratotic lesions, ( 3 ) in total, locations as stated and described in the exam ( Plantar, T2, SUB MTH (s) , 1 , B/L), were pared, and/or cut utilizing a sterile 15 blade, tissue nippers, and/or power dremel instrumentation by the physician of record - 36205, Q8 Progress Notes * Avani MARTIN AdamaeDOB: [birth year] (88 yo F)Acc No.[id number]:05/04/2024 Progress Note Patient:?Avani MARTINnne Provider:?Cruz Ansari DPM :1935???Age:88 Y???Sex:Female D ate:05/04/2024 Address:[address] [place] [address] [facility] Pcp:Bassam Contreras MD Subjective: * Chief Complaints: * ???At Risk FootcarePainful N ail(s) aggravated by shoes and causing difficulty standing/walking. * HPI: ???At Risk footcare:?Pt States Last PCP Visit:?Date?01/30/2024 * ROS:?General/Constitutional:?Nausea?denies.?Vomiting?denies.?Hunger Thirst?denies.?Loss appetite?denies.?Chills?denies.?Fatigue?denies.?Fever?denies.?Night Sweats?denies.?Unexplained weight loss?denies.?Unexplained [...] dece ased.?Father: .? * Social History:?Tobacco Use:?Tobacco use other than smoking?Are you an other tobacco user??No ?Tobacco Control (Standard)?Tobacco use:?Nonsmoker ?Additional Findings: Tobacco non-user?Current nonsmoker ???Drugs/Alcohol:?Drugs?Have you used drugs other than those for medical reasons in the past 12 months??No ?Alcohol Screen?Did you have a drink containing alcohol in the past year??Yes ?Points?0 ?Interpretation?Negative ???Miscellaneous:?Caffeine: yes, 2-3 cups per day. ?Children: yes, 1. ?Exercise: no. ?Marital status: . ?Occupation: Unemployed. * Medications:?TakingMultivita min Atenolol 25 MG Tablet 1 tablet Orally Once a day Medication List reviewed and reconciled with the patientTaking Multivitamin Taking Atenolol 25 MG Tablet 1 tablet Orally Once a day Medication List reviewed and reconciled with the patient * Allergies:?Erythromycinyes[A llergies Verified] Objective: * Vitals:? * Examination: ???Vascular: ?DP PULSES (B):? 0/4, B/L.?PT PULSES (B):? 0/4, B/L.?CAPILLARY FILL TIME:? delayed, all digits, B/L.?TROPHIC CONDITION-TEXTURE/ELASTICITY/TURGOR/HAIR GROWTH (B):? decreased, with sparse to absent hair growth, B/L.?TEMPERTURE GRADIENT (C):? decreased, cool to cool, proximal to distal, B/L.?PIGMENTATION:?mottled, B/L.?EDEMA (C):?1/4 , non-pitting , without aching pain , Leg(s) , Ankle(s) , Foot , B/L.?CLAUDICATION (C):?denies, B/L.?REST PAIN:?denies, B/L.?Nails: ?NAILS are:? Elongated, overgrown, dystrophic, lytic, greater than 3mm thick, discolored and friable with crumbly malodorous subungual debris, with pain on palpation, T1, T2, T3, T6, T7, T8, remaining nails are elongated, overgrown, dystrophic.?Dermatologic: ?SKIN FINDINGS:?Skin exam reveals Keratotic lesion(s) located at , Plantar, T2, SUB MTH (s) , 1 , B/L.? Assessment: * Assessment: 1.?Tinea unguium - B35.1???2 .?Atherosclerosis of hamilton artery of both lower extremities, with unspecified presence of clinical manifestation - I70.203 (Primary)???Notes :Q7(A), Q8(2B), Q9(1B,2C)???3.?Pain in right toe(s) - M79.674???4.?Pain in left toe(s) - M79.675??? Plan: * Treatment: 2.?Tinea unguium?Procedure: 16616-OXRINVD NAIL, 6 OR MORE * Procedures:?Debride Nail 6-10:?Nail debridement?Due to the clinical pathology outlined in the exam findings, performance of this nail treatment is medically necessary as its management by an unskilled/untrained nonprofessional would put this patients foot and overall health at risk. Therefore, debridement to affected nail(s), as described in exam (?T1,?T2,?T3,?T6,?T7,?T8), was performed exclusively by the physician of record to reduce/remove overall nail length, girth, thickness, subungual debris, and necrotic tissue, by manual and/or electrical means through the use of a nail nipper and/or dremel-type mud grinder, to a more viable healthy nail plate or bed tissue 6-10 nails in total. Silver nitrate was used for any petechial bleeding as necessary. Definitive antifungal treatment options, both pharmaceutical and surgical, have been reviewed and discussed with the patient. The patient solely prefers the use of intermittent/as needed professional debridement services for their nail condition and understands the need for additional periodic treatments to maintain effectiveness in symptomatic relief - 08223.?Keratoma Treatment:?Parring or Cutting of Benign Hyperkeratotic Lesion(s)?(-56) 2-4 Lesions - Due to the at risk nature of the patients medical condition as documented in the exam findings, performance of this keratoderma treatment is medically necessary as its management by an unskilled/untrained nonprofessional would put this patients foot and overall health at risk. Therefore, the benign hyperkeratotic lesions, ( 3 ) in total, locations as stated and described in the exam (?Plantar,?T2,?SUB MTH (s)?,?1?,?B/L), were pared, and/or cut utilizing a sterile 15 blade, tissue nippers, and/or power dremel instrumentation by the physician of record - 53996, Q8.? * Procedure Codes:?66756 DEBRI DE NAIL, 6 OR MORE, Modifiers: XS 37718 TRIM SKIN LESIONS, 2 TO 4, Modifiers: XS , Q8 * Follow Up:?prn * Images: * Sign off status: Completed true * Provider:Karen Ansari DPM Date:?2024 Generated for Apoorva sharif/Jonathan/eTranmargy on:?05/20/2024 05:40 PM EST History and Physical [...]
== END 2024-05-20 13:51 | disposition home or self-care (01) ==
LOC: HO.HAP 13:50
PROVIDERS: Visit Provider Internal Medicine
DX: Z13.89 Encounter for screening for other disorder (principal)

== ENCOUNTER 2024-06-22 11:06 | Outpatient (REF) | payer SELFPAY ==
--- OUTSIDE RECORDS SUMMARY | 2024-06-22 13:57 | XMS_ITS ---
Author Organization [facility] Address [address] [place] [address] Care Team Providers Care Elder Counselor Name Role Phone Bassam Contreras MD Primary Care Provider Unavaila Cruz Sun Unavailable [phone] Alfa Higgins [phone] Encounters Encounter Location Date Provider Diagnosis [address] [address] 10/29/2023 Alfa Higgins Plan Of Treatment Next Appt Details Provider Name:Cruz Ansari , 08/10/2024 11:30:00 AM, [address] [place] [address], [address], Progress Notes * Avani MARTINeDOB: [birth year] (88 yo F)Acc No.[id number]:10/29/2023 Progress Notes Patient:?Avani MARTIN Provider:?Alfa Higgins DPM :1935???Age:87 Y???Sex:Female D ate:10/29/2023 [facility] [address] [facility] [place] [place] Pcp:Bassam Contreras MD Subjective: * Chief Complaints: [...] DPM Date:? 024 Generated for Apoorva sharif/Jonathan/Pippa on:?06/22/2024 01:57 PM EST
--- OUTSIDE RECORDS SUMMARY | 2024-06-22 13:57 | XMS_ITS ---
Author Organization [facility] Address [address] [place] [address] Care Team Providers Care Plywood Scarfer Tender Name Role Phone Bassam Contreras MD Primary Care Provider Cruz Weathers Unavailable [phone] Allergies Allergen (clinical drug ingredient) Drug/Non Drug [...] Ordered Date Performed Result Body Sit e 94009-JBFSSFY NAIL, 6 OR MORE 05/04/2024 N/A 73180-OVRU SKIN LESIONS, 2 TO 4 05/04/2024 N/A Encounters Encounter Location Date Provider Diagnosis [facility] [address] [place] [address] 05/04/2024 Cruz Ansari Atherosclerosis of eyak artery of both lower extremities, with unspecified presence of clinical manifestation I70.203 ; Tinea unguium B35.1 ; Pain in right toe(s) M79.674 and Pain in left toe(s) M79.675 Assessments Encounter Date Diagnosis (ICD Code) Assessment Notes Treatment Notes Treatment Clinical Notes Section Notes 05/04/2024 Atherosclerosis of eyak artery of both lower extremities, with unspecified presence of clinical manifestation (ICD-10 - I70.203) Q7(A), Q8(2B), Q9(1B,2C) 05/04/2024 Tinea unguium (ICD-10 - B35.1) 05/04/2024 Pain in right toe(s) (ICD-10 - M79.674) 05/04/2024 Pain in left toe(s) (ICD-10 - M79.675) Plan Of Treatment Pending Test Test Name Order Date 26465-IRNQOPX NAIL, 6 OR MORE 05/04/2024 78356-IMHP SKIN LESIONS, 2 TO 4 05/04/19 25 Next Appt Details Follow Up: prn, Reason: Provider Name:Cruz Ansari , 08/10/2024 11:30:00 AM, [address] [place] [address], [phone], Procedure Notes * Category Sub-Category Detail [...] use of a nail nipper and/or dremel-type roll grinder, to a more viable healthy nail [...] instrumentation by the physician of record - 61085, Q8 Progress Notes * Avani MARTIN AdamaeDOB: [birth year] (88 yo F)Acc No.[id number]:05/04/2024 Progress Note Patient:?Avani MARTINnne Provider:?Cruz Ansari DPM :1935???Age:88 Y???Sex:Female D ate:05/04/2024 Address:[address] [place] [address] [facility] Pcp:Bassam Contreras MD Subjective: * Chief Complaints: [...] Assessment: 1.?Tinea unguium - B35.1???2 .?Atherosclerosis of eyak artery of both lower extremities, with unspecified presence of clinical manifestation - I70.203 (Primary)???Notes :Q7(A), Q8(2B), Q9(1B,2C)???3.?Pain in right toe(s) - M79.674???4.?Pain in left toe(s) - M79.675??? Plan: * Treatment: 2.?Tinea unguium?Procedure: 64319-REFGLUU NAIL, 6 OR MORE * Procedures:?Debride Nail [...] use of a nail nipper and/or dremel-type roll grinder, to a more viable healthy nail [...] to maintain effectiveness in symptomatic relief - 03267.?Keratoma Treatment:?Parring or Cutting of Benign Hyperkeratotic Lesion(s)?(-56) [...] instrumentation by the physician of record - 29660, Q8.? * Procedure Codes:?95520 DEBRI DE NAIL, 6 OR MORE, Modifiers: XS 97706 TRIM SKIN LESIONS, 2 TO 4, Modifiers: XS , Q8 * Follow Up:?prn * Images: * Sign off status: Completed true * Provider:Karen Ansari DPM Date:?2024 Generated for Apoorva sharif/Jonathan/eTransmpatti on:?06/22/2024 01:57 PM EST History and Physical Notes * [...]
--- OUTSIDE RECORDS SUMMARY | 2024-06-22 13:57 | XMS_ITS | Patient Health Record ---
Author Organization [facility] Address [address] [place] [address] Care Team Providers Care Engine Hostler Name Role Phone Ben LUJAN, Bassam Primary Care Provider Cruz Weathers Unavailable [phone] HigginsDamienAlfa Unavailable [phone] Allergies Allergen (clinical drug ingredient) Drug/Non Drug Allergy documented on EMR Reaction Allergy Type Onset Date Status erythromycin Erythromycin Unknown Drug Allergy A ctive Reason For Referral No Information Medications Medication [...] W/U Status Risk Notes Problem Atherosclerosis of eagle arteries of the extremities ([id number]) Atherosclerosis of eagle artery of both lower extremities, with unspecified presence of clinical manifestation (I70.203) Active confirmed Q7(A), Q8(2B), Q9(1B,2 C) Vital Signs Blood pressure diastolic 55 mm Hg 02/03/2024 Height 5 ft 4 in in 02/03/2024 Blood pressure systolic 130 mm Hg 02/03/2024 Weight 147 lbs 02/03/2024 BMI 25.23 kg/m2 02/03/2024 Procedures Procedure Date Ordered Date Performed Result Body Sit e 61015-JODFKNX NAIL, 6 OR MORE 10/28/2023 N/A 87373-MBBE SKIN LESIONS, 2 TO 4 10/28/2023 N/A 76889-UHHWKFS NAIL, 6 OR MORE 02/03/2024 N/A 01690-JUNV SKIN LESIONS, 2 TO 4 02/03/2024 N/A 61393-ZVRNWFP NAIL, 6 OR MORE 05/04/2024 N/A 30604-NDKN SKIN LESIONS, 2 TO 4 05/04/2024 N/A Encounters Encounter Location Date Provider Diagnosis [address] [address] 10/28/2023 Cruz Ansari Atherosclerosis of eagle artery of both lower extremities, with unspecified [...] and Hallux valgus (acquired), right foot M20.[address] [address] 02/03/2024 Cruz Ansari Atherosclerosis of eagle artery of both lower extremities, with unspecified presence of clinical manifestation I70.203 ; Tinea unguium B35.1 ; Pain in right toe(s) M79.674 and Pain in left toe(s) M79.[address] [address] 05/04/2024 Cruz Ansari Atherosclerosis of eagle artery of both lower extremities, with unspecified presence of clinical manifestation I70.203 ; Tinea unguium B35.1 ; Pain in right toe(s) M79.674 and Pain in left toe(s) M79.[address] [place] [address] 09/24/2023 Cruz Ansari Assessments Encounter Date Diagnosis (ICD Code) Assessment Notes Treatment Notes Treatment Clinical Notes Section Notes 10/28/2023 Tinea unguium (ICD-10 - B35.1) 10/28/2023 Atherosclerosis of eagle artery of both lower extremities, with unspecified presence of clinical manifestation (ICD-10 - I70.203) 02/03/2024 Tinea unguium (ICD-10 - B35.1) 02/03/2024 Atherosclerosis of eagle artery of both lower extremities, with unspecified presence of clinical manifestation (ICD-10 - I70.203) Q7(A), Q8(2B), Q9(1B,2C) 05/04/2024 Tinea unguium (ICD-10 - B35.1) 05/04/2024 Atherosclerosis of eagle artery of both lower extremities, with unspecified [...] Treatment Pending Test Test Name Order Date 48338-LVTHYOQ NAIL, 6 OR MORE 10/28/2023 30748-YBUTVIF NAIL, 6 OR MORE 02/03/2024 68280-QFPDWSH NAIL, 6 OR MORE 05/04/2024 27046-KXCD SKIN LESIONS, 2 TO 4 05/04/19 55325-NURQ SKIN LESIONS, 2 TO 4 02/03/20 27542-WDDF SKIN LESIONS, 2 TO 4 10/28/19 Next Appt Details Provider Name:Cruz Ansari , 08/10/2024 11:30:00 AM, [address] [facility], [place], [address], Insurance Providers Payer Name Payer Address Payer Phone Subscriber Number Group Number Insured Name Patient Relationship to Insured Coverage Start Date Coverage End Date Medicare National Govt Svcs Inc [address] [facility] [address] [id number] Avani Lopez Self - patient is the insured [facility] ([facility] [address] [place], [place] [address] [phone] [id number] Avani Lopez Self - patient is the insured Medical (General) History Medical History History ICD Code Macular degeneration Measles Mumps Chicken pox Hypertension shots in eye every 7 weeks left Surgical History Surgery Date(Month/Year)
--- OUTSIDE RECORDS SUMMARY | 2024-06-22 13:57 | XMS_ITS ---
Author Organization [facility] stacy [place] Address [address] [place] [address] Care Team Providers Care No Experience Name Role Phone Bassam Contreras MD Primary Care Provider Unavaila Cruz Sun Unavailable [phone] Allergies Allergen (clinical drug ingredient) Drug/Non Drug [...] Ordered Date Performed Result Body Sit e 93629-UEUQXLN NAIL, 6 OR MORE 02/03/2024 N/A 54615-WNYS SKIN LESIONS, 2 TO 4 02/03/2024 N/A Encounters Encounter Location Date Provider Diagnosis [facility] [address] [address] 02/03/2024 Cruz Ansari Atherosclerosis of [place] artery of both lower extremities, with unspecified presence of clinical manifestation I70.203 ; Tinea unguium B35.1 ; Pain in right toe(s) M79.674 and Pain in left toe(s) M79.675 Assessments Encounter Date Diagnosis (ICD Code) Assessment Notes Treatment Notes Treatment Clinical Notes Section Notes 02/03/2024 Atherosclerosis of [place] artery of both lower extremities, with unspecified presence of clinical manifestation (ICD-10 - I70.203) Q7(A), Q8(2B), Q9(1B,2C) 02/03/2024 Tinea unguium (ICD-10 - B35.1) 02/03/2024 Pain in right toe(s) (ICD-10 - M79.674) 02/03/2024 Pain in left toe(s) (ICD-10 - M79.675) Plan Of Treatment Pending Test Test Name Order Date 93237-SUJFHOY NAIL, 6 OR MORE 02/03/2024 03734-IGUH SKIN LESIONS, 2 TO 4 02/03/20 24 Next Appt Details Follow Up: prn, Reason: Provider Name:Cruz Ansari , 08/10/2024 11:30:00 AM, [address] [place] [address], [phone], Procedure Notes * Category Sub-Category Detail Notes Debride Nail 6-10 Nail debridement Performance o f this nail treatment by a nonprofessional would put this patients foot and overall health at risk. Therefore, nail debridement was performed extensively to reduce/remove overall nail length, girth, thickness, subungual debris, and necrotic tissue, by manual and/or electrical means through the use of a nail nipper and/or dremel-type shot grinder operator, to a more viable healthy nail plate or bed tissue 6-10. Silver nitrate used for any petechial bleeding as necessary. Definitive antifungal treatment options have been reviewed and discussed with the patient. The patient chooses, no pharmaceutical tx - 23282 Keratoma Treatment Parring or Cutting o f Benign Hyperkeratotic Lesion(s) (-56) 2-4 Lesions - The Benign hyperkeratotic lesions, as described above were pared, and/or cut utilizing a sterile 15 blade, tissue nippers, and/or dremel - 34609 , Q8 Progress Notes * Avani MARTINnneDOB: [birth year] (88 yo F)Acc No.[id number]:02/03/2024 Progress Note Patient:Avani Brooks Provider:?Cruz Ansari DPM :1935???Age:88 Y???Sex:Female D ate:02/03/2024 Address:[address] [place], [place] [id number] Pcp:Bassam Contreras MD Subjective: * Chief Complaints: [...] Assessment: 1.?Tinea unguium - B35.1?2.? Atherosclerosis of [place] artery of both lower extremities, with unspecified presence of clinical manifestation - I70.203, Q7(A), Q8(2B), Q9(1B,2C)?3.?Pain in right toe(s) - M79.674?4.?Pain in left toe(s) - M79.675? Plan: * Treatment: 2.?Atherosclerosis of [place] artery of both lower extremities, with unspecified presence of clinical manifestation?Procedure: 41697-JNKM SKIN LESIONS, 2 TO 4 * Procedures:?Debride Nail 6-10:?Nail debridement?Performance of this nail treatment by a nonprofessional would put this patients foot and overall health at risk. Therefore, nail debridement was performed extensively to reduce/remove overall nail length, girth, thickness, subungual debris, and necrotic tissue, by manual and/or electrical means through the use of a nail nipper and/or dremel-type shot grinder operator, to a more viable healthy nail plate or bed tissue 6-10. Silver nitrate used for any petechial bleeding as necessary. Definitive antifungal treatment options have been reviewed and discussed with the patient. The patient chooses, no pharmaceutical tx - 44260.?Keratoma Treatment:?Parring or Cutting of Benign Hyperkeratotic Lesion(s)?(-56) 2-4 Lesions - The Benign hyperkeratotic lesions, as described above were pared, and/or cut utilizing a sterile 15 blade, tissue nippers, and/or dremel - 22041 , Q8.? * Procedure Codes:?67980 DEBRI DE NAIL, 6 OR MORE, Modifiers: XS 31439 TRIM SKIN LESIONS, 2 TO 4, Modifiers: XS , Q8 * Follow Up:?prn * Images: * Sign off status: Completed true * Provider:?Cruz Ansari DPM Date:?2023 Generated for Apoorva sharif/Jonathan/Pippa on:?06/22/2024 01:57 PM EST History and Physical [...]
== END 2024-06-22 11:07 | disposition home or self-care (01) ==
LOC: HO.HAP 11:06
PROVIDERS: Visit Provider Internal Medicine
DX: Z13.89 Encounter for screening for other disorder (principal)

== ENCOUNTER 2024-08-05 13:06 | Outpatient (AMB) | payer MEDICARE, OTHER, SELFPAY ==
--- NOTE | 2024-08-05 13:07 | MHC.PC.OV ---
Vital Signs 08/05/24 13:08 Height 5 ft 2 in Weight 142 lb BMI 26.0 BP 130/70 Respiration 14 Pulse 54 Pulse Source Pulse Oximeter Temp 97.7 F Temp Source Temporal Artery Scan Pulse Oximetry (%) 95 Oxygen Delivery Method Room Air Intake Visit Reasons: Routine Beverage Server Required: No Accompanied by: Self / Same As Patient Allergies amoxicillin Allergy (Mild, Verified 08/05/24 13:09) Itching Tobacco use date assessed: 08/05/24 Fall risk assessment: No Falls in past year Last assessed Fall Risk: 08/05/24 Dental Screening Dental Screen Date: 08/05/24 Did you have a dental visit in the last 12 months?: Yes Did you have a dental problem in the last 6 months where you did not have access to dental care?: No Was dental information given to patient?: Patient has dentist HPI HPI Comments History of Present Illness Details The patient is a 88 year old female with a past medical history of htn, hld, OA, [place], RBB presenting for follow up. Last seen by PCP in Jan CV: Has seen cardiology. right bundle-branch block on EKG. On atenolol 25mg daily. Denies chest pain, dyspnea. Follows with ophtho-Dr Gay. Also sees retinal specialist ROS CONSTITUTIONAL: Denies weight loss, fever and chills. HEENT: Denies changes in vision and hearing. RESPIRATORY: Denies SOB and cough. CV: Denies palpitations and CP GI: Denies abdominal pain, nausea, vomiting and diarrhea. : Denies dysuria and urinary frequency. MSK: Denies new myalgia and joint pain. SKIN: Denies rash and pruritus. NEUROLOGICAL: Denies headache PSYCHIATRIC: Denies recent changes in mood. PHYSICAL EXAM: GENERAL: Alert and oriented x 3. NAD EYES: EOMI. Anicteric. HENT: Moist mucous membranes. No scleral icterus. No cervical lymphadenopathy. LUNGS: Clear to auscultation bilaterally. CARDIOVASCULAR: Regular rate and rhythm. No murmur. No JVD. ABDOMEN: Soft, non-tender +bs EXTREMITIES: No edema. Non-tender. SKIN: No rashes or lesions. Warm. NEUROLOGIC: No focal neurological deficits. CN II-XII grossly intact PSYCHIATRIC: Cooperative. Appropriate mood and affect [facility] Medical History (Updated 08/05/24 @ 13:52 by Edith Lewis MD) Essential hypertension Family History Father No problems noted. Mother Breast cancer Social History (Updated 08/05/24 @ 13:19 by ALEJANDRA Zelaya) Housing: House Alcohol intake: current Alcohol intake frequency: holidays/special occasions only Comment: social drinker Patient Tobacco Use Status: Never used Tobacco Current occupational status: retired Cognitive needs: Yes (cane) Hearing needs: Yes (b/l hearing aids) Vision needs: Yes (rx glasses) Questionnaire PHQ-9 Over the last 2 weeks, how often have you been bothered by any of the following problems? 1. Little interest or pleasure in doing things: not at all 2. Feeling down, depressed, or hopeless: not at all 3. Trouble falling or staying asleep, or sleeping too much: not at all 4. Feeling tired or having little energy: not at all 5. Poor appetite or overeating: not at all 6. Feeling bad about yourself - or that you are a failure or have let yourself or your family down: not at all 7. Trouble concentrating on things, such as reading the newspaper or watching television: not at all 8. Moving or speaking so slowly that other people could have noticed. Or the opposite - being so fidgety or restless that you have been moving around a lot more than usual: not at all 9. Thoughts that you would be better off or of hurting yourself in some way: not at all Total score: 0 Source: Developed by Drs. Barrett Carter, Irene Bautista, Ej Hdz and colleagues, with an educational celestino from [employer] Thrive Questionnaire Date Thrive assessed: 08/05/24 I am a: Patient Within the past 12 months, did the food you bought not last and you didn't have the money to get more?: Never true Within the past 12 months, did you worry whether your food would run out before you got money to buy more?: Never true Do you have trouble paying for medicines?: No Do you have trouble getting transportation to medical appointments?: No Do you have trouble paying your heating and electricity bill?: No Do you have trouble taking care of your child, family member or friend?: No Do you have trouble with day-to-day activities such as bathing, preparing meals, shopping, managing finances, etc.?: No Are you currently unemployed and looking for a job?: No Are you interested in more education?: No THRIVE Score: 0 AUDIT C Alcohol Use Questionnaire (AUDIT-C) 1. How often do you have a drink containing alcohol?: Monthly or less 2. How many drinks containing alcohol do you have on a typical day when you are drinking?: 1 or 2 3. How often do you have six or more drinks on one occasion?: Never Total Score: 1 SARAH-7 AMB Questionnaire SARAH-7 Date SARAH - 7 assessed: 08/05/24 Feeling nervous, anxious, or on edge: 0 = Not at all Not being able to stop or control worryin = Not at all Worrying too much about different things: 0 = Not at all Trouble relaxin = Not at all Being so restless that it is hard to sit still: 0 = Not at all Becoming easily annoyed or irritable: 0 = Not at all Feeling afraid as if something awful might happen: 0 = Not at all Total SARAH-7 score (0-4 normal; 5-9 mild; 10-14 moderate; 15-21 severe): 0 Source: Developed by Drs. Barrett Carter, Irene Bautista, Ej Hdz and colleagues, with an educational celestino from [employer] Physical exam (Primary Care) Vital Signs: Last Vital Signs Temp 97.7 F 08/05/24 13:08 Pulse 54 08/05/24 13:08 Resp 14 08/05/24 13:08 BP 130/70 08/05/24 13:08 Pulse Ox 95 08/05/24 13:08 Oxygen Delivery Method Room Air 08/05/24 13:08 BMI result Body Mass Index 26.0 Tobacco/Smoking Status: Tobacco use Status Tobacco use date assessed 08/05/24 08/05/24 13:10 Patient Tobacco Use Status Never used Tobacco 08/05/24 13:19 PHQ-9: PHQ-9 Score PHQ-9: Total score 0 08/05/24 13:28 Thrive Assessment: Date of Thrive Assessment Date Thrive assessed 08/05/24 08/05/24 13:10 Coding Level of Care Code New Pt Level 4 (34088) Diagnoses Essential hypertension I10 Premature atrial contractions I49.1 Chronic pain of both knees M25.561; M25.562; G89.29 Chronicity: chronic Assessment & Plan Assessment & Plan (1) Essential hypertension: Code(s): I10 - Essential (primary) hypertension Category: Medical (2) Premature atrial contractions: Code(s): I49.1 - Atrial premature depolarization Category: Medical (3) Bilateral knee pain: Code(s): M25.561 - Pain in right knee; M25.562 - Pain in left knee Category: Medical Qualifiers: Chronicity: chronic Qualified Code(s): M25.561 - Pain in right knee; M25.562 - Pain in left knee; G89.29 - Other chronic pain Plan 88 y/o to establish past medical, surgical, social reviewed HTN well controlled bilateral knee pain-referral to pt Orders: Orders Vitamin B12 and Folate 6 Months I10 - Essential (primary) hypertension, I45.10 - Unspecified right bundle-branch block, Z13.220 - Encounter for screening for lipoid disorders, Z13.228 - Encounter for screening for other metabolic disorders Complete Blood Count Auto Diff 6 Months I10 - Essential (primary) hypertension, I45.10 - Unspecified right bundle-branch block, Z13.220 - Encounter for screening for lipoid disorders, Z13.228 - Encounter for screening for other metabolic disorders Comprehensive Met. Panel 6 Months I10 - Essential (primary) hypertension, I45.10 - Unspecified right bundle-branch block, Z13.220 - Encounter for screening for lipoid disorders, Z13.228 - Encounter for screening for other metabolic disorders IRON PROFILE 6 Months I10 - Essential (primary) hypertension, I45.10 - Unspecified right bundle-branch block, Z13.220 - Encounter for screening for lipoid disorders, Z13.228 - Encounter for screening for other metabolic disorders PT Evaluation and Treatment Today M25.561 - Pain in right knee, M25.562 - Pain in left knee Medications: New atenolol 25 mg PO DAILY 90 tabs 3RF
[2024-08-05 13:08] VITALS: BP 130/70; PULSE 54; RESP 14; TEMP 36.5; O2SAT 95; BMI 26.0
--- OUTSIDE RECORDS SUMMARY | 2024-08-05 16:00 | XMS_ITS ---
Author Organization [facility] stacy [place] Address [address] [facility] [address] Care Team Providers Care Industrial Maintenance Millwright Name Role Phone Bassam Contreras MD Primary Care Provider Unavaila Cruz Sun Unavailable [phone] Allergies Allergen (clinical drug ingredient) Drug/Non Drug [...] Ordered Date Performed Result Body Sit e 45790-PVSYAHB NAIL, 6 OR MORE 02/03/2024 N/A 69109-PYIC SKIN LESIONS, 2 TO 4 02/03/2024 N/A Encounters Encounter Location Date Provider Diagnosis [facility] [address] [address] 02/03/2024 Cruz Ansari Atherosclerosis of [place] artery of both lower extremities, with unspecified presence of clinical manifestation I70.203 ; Tinea unguium B35.1 ; Pain in right toe(s) M79.674 and Pain in left toe(s) M79.675 Assessments Encounter Date Diagnosis (ICD Code) Assessment Notes Treatment Notes Treatment Clinical Notes Section Notes 02/03/2024 Atherosclerosis of [place] artery of both lower extremities, with unspecified presence of clinical manifestation (ICD-10 - I70.203) Q7(A), Q8(2B), Q9(1B,2C) 02/03/2024 Tinea unguium (ICD-10 - B35.1) 02/03/2024 Pain in right toe(s) (ICD-10 - M79.674) 02/03/2024 Pain in left toe(s) (ICD-10 - M79.675) Plan Of Treatment Pending Test Test Name Order Date 29711-GHXDMNO NAIL, 6 OR MORE 02/03/2024 01185-TQVG SKIN LESIONS, 2 TO 4 02/03/20 24 Next Appt Details Follow Up: prn, Reason: Provider Name:Cruz Ansari , 08/10/2024 11:30:00 AM, [address] [place] [address], [phone], Procedure Notes * Category Sub-Category Detail Notes Debride Nail 6-10 Nail debridement Performance o f this nail treatment by a nonprofessional would put this patients foot and overall health at risk. Therefore, nail debridement was performed extensively to reduce/remove overall nail length, girth, thickness, subungual debris, and necrotic tissue, by manual and/or electrical means through the use of a nail nipper and/or dremel-type needle grinder, to a more viable healthy nail plate or bed tissue 6-10. Silver nitrate used for any petechial bleeding as necessary. Definitive antifungal treatment options have been reviewed and discussed with the patient. The patient chooses, no pharmaceutical tx - 33710 Keratoma Treatment Parring or Cutting o f Benign Hyperkeratotic Lesion(s) (-56) 2-4 Lesions - The Benign hyperkeratotic lesions, as described above were pared, and/or cut utilizing a sterile 15 blade, tissue nippers, and/or dremel - 83613 , Q8 Progress Notes * Avani MARTINnneDOB: [birth year] (88 yo F)Acc No.[id number]:02/03/2024 Progress Note Patient:Avani Brooks Provider:?Cruz Ansari DPM :1935???Age:88 Y???Sex:Female D ate:02/03/2024 Address:[address] [place], [place] [address] Pcp:Bassam Contreras MD Subjective: * Chief Complaints: [...] Assessment: 1.?Tinea unguium - B35.1?2.? Atherosclerosis of [place] artery of both lower extremities, with unspecified presence of clinical manifestation - I70.203, Q7(A), Q8(2B), Q9(1B,2C)?3.?Pain in right toe(s) - M79.674?4.?Pain in left toe(s) - M79.675? Plan: * Treatment: 2.?Atherosclerosis of [place] artery of both lower extremities, with unspecified presence of clinical manifestation?Procedure: 69687-VTKT SKIN LESIONS, 2 TO 4 * Procedures:?Debride Nail 6-10:?Nail debridement?Performance of this nail treatment by a nonprofessional would put this patients foot and overall health at risk. Therefore, nail debridement was performed extensively to reduce/remove overall nail length, girth, thickness, subungual debris, and necrotic tissue, by manual and/or electrical means through the use of a nail nipper and/or dremel-type needle grinder, to a more viable healthy nail plate or bed tissue 6-10. Silver nitrate used for any petechial bleeding as necessary. Definitive antifungal treatment options have been reviewed and discussed with the patient. The patient chooses, no pharmaceutical tx - 85833.?Keratoma Treatment:?Parring or Cutting of Benign Hyperkeratotic Lesion(s)?(-56) 2-4 Lesions - The Benign hyperkeratotic lesions, as described above were pared, and/or cut utilizing a sterile 15 blade, tissue nippers, and/or dremel - 51528 , Q8.? * Procedure Codes:?97708 DEBRI DE NAIL, 6 OR MORE, Modifiers: XS 93974 TRIM SKIN LESIONS, 2 TO 4, Modifiers: XS , Q8 * Follow Up:?prn * Images: * Sign off status: Completed true * Provider:?Cruz Ansari DPM Date:?2023 Generated for Apoorva sharif/Jonathan/eTmichealitting on:?08/05/2024 04:00 PM EDT History and Physical Notes * HPI (History [...]
--- OUTSIDE RECORDS SUMMARY | 2024-08-05 16:00 | XMS_ITS | Patient Health Record ---
Author Organization [facility] Address [address] [place] [address] Care Team Providers Care Tone Artist Apprentice Name Role Phone Ben LUJAN, Bassam Primary Care Provider Cruz Weathers Unavailable [phone] HigginsDamienAlfa Unavailable [phone] Allergies Allergen (clinical drug ingredient) Drug/Non Drug [...] W/U Status Risk Notes Problem Atherosclerosis of [place] arteries of the extremities ([id number]) Atherosclerosis of [place] artery of both lower extremities, with unspecified presence of clinical manifestation (I70.203) Active confirmed Q7(A), Q8(2B), Q9(1B,2 C) Vital Signs Blood pressure diastolic 55 mm Hg 02/03/2024 Height 5 ft 4 in in 02/03/2024 Blood pressure systolic 130 mm Hg 02/03/2024 Weight 147 lbs 02/03/2024 BMI 25.23 kg/m2 02/03/2024 Procedures Procedure Date Ordered Date Performed Result Body Sit e 53554-DKBOEGZ NAIL, 6 OR MORE 10/28/2023 N/A 37891-PFHB SKIN LESIONS, 2 TO 4 10/28/2023 N/A 23613-HCNFLPL NAIL, 6 OR MORE 02/03/2024 N/A 54578-XINP SKIN LESIONS, 2 TO 4 02/03/2024 N/A 04651-LJMPLRY NAIL, 6 OR MORE 05/04/2024 N/A 77037-NIXU SKIN LESIONS, 2 TO 4 05/04/2024 N/A Encounters Encounter Location Date Provider Diagnosis [address] [address] 10/28/2023 Cruz Ansari Atherosclerosis of [place] artery of both lower extremities, with unspecified [...] and Hallux valgus (acquired), right foot M20.[address] [address] 02/03/2024 Cruz Ansari Atherosclerosis of [place] artery of both lower extremities, with unspecified presence of clinical manifestation I70.203 ; Tinea unguium B35.1 ; Pain in right toe(s) M79.674 and Pain in left toe(s) M79.[address] [address] 05/04/2024 Cruz Ansari Atherosclerosis of [place] artery of both lower extremities, with unspecified presence of clinical manifestation I70.203 ; Tinea unguium B35.1 ; Pain in right toe(s) M79.674 and Pain in left toe(s) M79.[address] [place] [address] 09/24/2023 Cruz Ansari Assessments Encounter Date Diagnosis (ICD Code) Assessment Notes Treatment Notes Treatment Clinical Notes Section Notes 10/28/2023 Tinea unguium (ICD-10 - B35.1) 10/28/2023 Atherosclerosis of [place] artery of both lower extremities, with unspecified presence of clinical manifestation (ICD-10 - I70.203) 02/03/2024 Tinea unguium (ICD-10 - B35.1) 02/03/2024 Atherosclerosis of [place] artery of both lower extremities, with unspecified presence of clinical manifestation (ICD-10 - I70.203) Q7(A), Q8(2B), Q9(1B,2C) 05/04/2024 Tinea unguium (ICD-10 - B35.1) 05/04/2024 Atherosclerosis of [place] artery of both lower extremities, with unspecified [...] Treatment Pending Test Test Name Order Date 83460-LSKGPOR NAIL, 6 OR MORE 10/28/2023 78982-RDRRYML NAIL, 6 OR MORE 02/03/2024 14189-VGLMPMN NAIL, 6 OR MORE 05/04/2024 51226-ABUR SKIN LESIONS, 2 TO 4 05/04/19 49446-QEOU SKIN LESIONS, 2 TO 4 02/03/20 71610-ABCQ SKIN LESIONS, 2 TO 4 10/28/19 Next Appt Details Provider Name:Cruz Ansari , 08/10/2024 11:30:00 AM, [address] [facility], [place], [address], Insurance Providers Payer Name Payer Address Payer Phone Subscriber Number Group Number Insured Name Patient Relationship to Insured Coverage Start Date Coverage End Date Medicare National [employer] [address] [place] [address] [id number] Avani Lopez Self - patient is the insured [facility] ([facility] [address] [place], [place] [address] [phone] [id number] Avani Lopez Self - patient is the insured Medical (General) History Medical History History ICD Code Macular degeneration Measles Mumps Chicken pox Hypertension shots in eye every 7 weeks left Surgical History Surgery Date(Month/Year)
--- OUTSIDE RECORDS SUMMARY | 2024-08-05 16:00 | XMS_ITS ---
Author Organization [facility] Address [address] [place] [address] Care Team Providers Care Mosaic Tiler Name Role Phone Bassam Contreras MD Primary Care Provider Unavaila Cruz Sun Unavailable [phone] Alfa Higgins [phone] Encounters Encounter Location Date Provider Diagnosis [address] [address] 10/29/2023 Alfa Higgins Plan Of Treatment Next Appt Details Provider Name:Cruz Ansari , 08/10/2024 11:30:00 AM, [address] [place] [address], [phone], Progress Notes * Avani MARTINeDOB: [birth year] (88 yo F)Acc No.[id number]:10/29/2023 Progress Notes Patient:?Avani MARTIN Provider:?Alfa Higgins DPM :1935???Age:87 Y???Sex:Female D ate:10/29/2023 [facility] [place] [place] Pcp:Bassam Contreras MD Subjective: * Chief Complaints: [...] DPM Date:? 024 Generated for Apoorva sharif/Jonathan/Pippa on:?08/05/2024 04:00 PM EDT
--- OUTSIDE RECORDS SUMMARY | 2024-08-05 16:01 | XMS_ITS ---
Author Organization [facility] Address [address] [place] [address] Care Team Providers Care Grain Broker And Market Operator Name Role Phone Bassam Contreras MD Primary Care Provider Cruz Weathers Unavailable [phone] Allergies Allergen (clinical drug ingredient) Drug/Non Drug [...] Ordered Date Performed Result Body Sit e 44890-BYIKTST NAIL, 6 OR MORE 05/04/2024 N/A 05528-YGGR SKIN LESIONS, 2 TO 4 05/04/2024 N/A Encounters Encounter Location Date Provider Diagnosis [facility] [address] [place] [address] 05/04/2024 Cruz Ansari Atherosclerosis of [place] artery of both lower extremities, with unspecified presence of clinical manifestation I70.203 ; Tinea unguium B35.1 ; Pain in right toe(s) M79.674 and Pain in left toe(s) M79.675 Assessments Encounter Date Diagnosis (ICD Code) Assessment Notes Treatment Notes Treatment Clinical Notes Section Notes 05/04/2024 Atherosclerosis of [place] artery of both lower extremities, with unspecified presence of clinical manifestation (ICD-10 - I70.203) Q7(A), Q8(2B), Q9(1B,2C) 05/04/2024 Tinea unguium (ICD-10 - B35.1) 05/04/2024 Pain in right toe(s) (ICD-10 - M79.674) 05/04/2024 Pain in left toe(s) (ICD-10 - M79.675) Plan Of Treatment Pending Test Test Name Order Date 01598-UEKRQYV NAIL, 6 OR MORE 05/04/2024 42471-LFNA SKIN LESIONS, 2 TO 4 05/04/19 25 Next Appt Details Follow Up: prn, Reason: Provider Name:Cruz Ansari , 08/10/2024 11:30:00 AM, [address] [place] [address], [phone], Procedure Notes * Category Sub-Category Detail [...] use of a nail nipper and/or dremel-type carbon plant grinder, to a more viable healthy nail [...] instrumentation by the physician of record - 18738, Q8 Progress Notes * Avani MARTIN AdamaeDOB: [birth year] (88 yo F)Acc No.[id number]:05/04/2024 Progress Note Patient:?Avani MARTINnne Provider:?Cruz Ansari DPM :1935???Age:88 Y???Sex:Female D ate:05/04/2024 Address:[address] [place] [address] [facility] Pcp:Bassam Contreras MD Subjective: * Chief Complaints: [...] Assessment: 1.?Tinea unguium - B35.1???2 .?Atherosclerosis of sel[place] artery of both lower extremities, with unspecified presence of clinical manifestation - I70.203 (Primary)???Notes :Q7(A), Q8(2B), Q9(1B,2C)???3.?Pain in right toe(s) - M79.674???4.?Pain in left toe(s) - M79.675??? Plan: * Treatment: 2.?Tinea unguium?Procedure: 86988-TPEIFEW NAIL, 6 OR MORE * Procedures:?Debride Nail [...] use of a nail nipper and/or dremel-type carbon plant grinder, to a more viable healthy nail [...] to maintain effectiveness in symptomatic relief - 07244.?Keratoma Treatment:?Parring or Cutting of Benign Hyperkeratotic Lesion(s)?(-56) [...] instrumentation by the physician of record - 60181, Q8.? * Procedure Codes:?50712 DEBRI DE NAIL, 6 OR MORE, Modifiers: XS 16725 TRIM SKIN LESIONS, 2 TO 4, Modifiers: XS , Q8 * Follow Up:?prn * Images: * Sign off status: Completed true * Provider:?Cruz nAsari DPM Date:?2024 Generated for Apoorva sharif/Jonathan/eTransmitting on:?08/05/2024 04:00 PM EDT History and Physical [...]
== END 2024-08-05 13:43 | disposition home or self-care (01) ==
LOC: HO.HMCHD 13:06
PROVIDERS: PCP Internal Medicine; Visit Provider Internal Medicine
DX: I10 Essential (primary) hypertension (principal); I49.1 Atrial premature depolarization; M25.561 Pain in right knee; M25.562 Pain in left knee; G89.29 Other chronic pain

== ENCOUNTER → 2024-08-05 13:06 | Outpatient (BNVA) | payer MEDICARE, OTHER, SELFPAY | PROVIDERS: PCP Internal Medicine; Visit Provider Internal Medicine | DX: I10 Essential (primary) hypertension (principal); I45.10 Unspecified right bundle-branch block; I49.1 Atrial premature depolarization; E78.5 Hyperlipidemia, unspecified; M25.561 Pain in right knee; M25.562 Pain in left knee | CPT/HCPCS: 96127; 99202 ==

== ENCOUNTER 2025-02-01 13:05 | Outpatient (REF) | payer MEDICARE, OTHER, SELFPAY ==
--- OUTSIDE RECORDS SUMMARY | 2024-11-30 07:15 | XMS_ITS ---
Author Organization [facility] Address [address] [place] [address] Care Team Providers Care Foot Miter Operator Name Role Phone Edith Ku Primary Care Provider Unavailabl Cruz Hutchinson Unavailable [phone] Hillman Encounters Encounter Location Date Provider Diagnosis [address] [address] 11/30/2024 Cruz Ansari Plan Of Treatment Next Appt Details Provider Name:Cruz Ansari , 05/31/2025 10:45:00 AM, [address] [place] [address], [phone], Progress Notes * Avani MARTINeDOB: [birth year] (89 yo F)Acc No.[id number]:11/30/2024 Progress Note Patient: Andres Avani BUTT Provider: Bennett Ansari DPM :1935 A ge:89 Y S ex:Female Date:11/30/2024 Address: [place] [facility] Pcp:Edith Ku Subjective: * Chief Complaints: * [address] Hillman. * Medical History: Objective: * Vitals: Assessment: Plan: * Treatment: * Images: * The named appointment provid er may or may not be the originator of this progress note, and it is not deemed complete until electronically signed by the appointment provider. Sign off status: Pending * Provider: Bennett Ansari DPM Date: 0 11/30/2024 Generated for Apoorva Coleman on: 1 03:47 PM EDT
--- OUTSIDE RECORDS SUMMARY | 2025-02-01 10:00 | XMS_ITS ---
Author [facility] Address [address] [place] [address] Care Team Providers Care Adolescent Psychiatrist Name Role Phone Edith Ku Primary Care Provider Cruz Evangelista Unavailable [phone] Allergies Allergen (clinical drug ingredient) Drug/Non Drug Allergy documented on EMR Reaction Allergy Type Onset Date Status erythromycin Erythromycin Unknown Drug Allergy A ctive REASON FOR VISIT At Risk Footcare, Painful Nail(s) aggravated by shoes and causing difficulty standing/walking. Medications Medication SIG (Take, Route, Fr equency, Duration) Notes Start Date End Date Status Vabysmo Active Multivitamin Active Atenolol 25 MG 1 tablet Orally Once a day Active Social History Tobacco Use: Social History Observation Description Date Details (start date - stop date) Never Smoker NA - NA Tobacco use other than smoking: Question Answer Notes Are you an other tobacco user? No Tobacco Control (Standard) Question Answer Notes Tobacco use: Nonsmoker Additional Findings: Tobacco non-user Current no nsmoker AUDIT-C (Standard) Question Answer Notes Did you have a drink containing alcohol in the p ast year? No Points 0 Interpretation Negative Vital Signs Height 5 ft 4 in in 02/01/2025 Weight 143 lbs 02/01/2025 BMI 24.54 kg/m2 02/01/2025 Blood pressure systolic 130 mm Hg 02/02/20 25 Blood pressure diastolic 60 mm Hg 025 Procedures Procedure Date Ordered Date Performed Result Body Sit e 70782-QZEFBBK NAIL, 6 OR MORE 02/01/2025 N/A 57174-FQLH SKIN LESIONS, 2 TO 4 02/01/2025 N/A Encounters Encounter Location Date Provider Diagnosis [facility] [place] [address] [place] [address] 02/01/2025 Cruz Ansari Atherosclerosis of unga artery of both lower extremities, with unspecified presence of clinical manifestation I70.203 ; Tinea unguium B35.1 ; Pain in right toe(s) M79.674 and Pain in left toe(s) M79.675 Assessments Encounter Date Diagnosis (ICD Code) Assessment Notes Treatment Notes Treatment Clinical Notes Section Notes 02/01/2025 Atherosclerosis of unga artery of both lower extremities, with unspecified presence of clinical manifestation (ICD-10 - I70.203) Q7(A), Q8(2B), Q9(1B,2C) 02/01/2025 Tinea unguium (ICD-10 - B35.1) 02/01/2025 Pain in right toe(s) (ICD-10 - M79.674) 02/01/2025 Pain in left toe(s) (ICD-10 - M79.675) Plan Of Treatment Pending Test Test Name Order Date 15182-JSORZNF NAIL, 6 OR MORE 02/01/2025 04892-JSVF SKIN LESIONS, 2 TO 4 02/02/20 25 Next Appt Details Follow Up: prn, Reason: Provider Name:Cruz Ansari , 05/31/2025 10:45:00 AM, [address] [place] [address], [phone], Procedure Notes * Category Sub-Category Detail Notes Debride Nail 6-10 Nail debridement Due to the cl inical pathology outlined in the exam findings, performance of this nail treatment is medically necessary as its management by an unskilled/untrained nonprofessional would put this patients foot and overall health at risk. Therefore, debridement to affected nail(s), as described in exam ( T1, T2, T3, T6, T7, T8 ), was performed exclusively by the physician of record to reduce/remove overall nail length, girth, thickness, subungual debris, and necrotic tissue, by manual and/or electrical means through the use of a nail nipper and/or dremel-type grinder operator external tool, to a more viable healthy nail plate [...] to maintain effectiveness in symptomatic relief - 06125 Keratoma Treatment Parring or Cutting o f Benign Hyperkeratotic Lesion(s) (-56) 2-4 Lesions - Due to the at risk nature of the patients medical condition as documented in the exam findings, performance of this keratoderma treatment is medically necessary as its management by an unskilled/untrained nonprofessional would put this patients foot and overall health at risk. Therefore, the benign hyperkeratotic lesions, (3 ) in total, locations as stated and described in the exam ( Plantar, T2, SUB MTH (s) , 1 , B/L ), were pared, and/or cut utilizing a sterile 15 blade, tissue nippers, and/or power dremel instrumentation by the physician of record - 29623, Q8 Progress Notes * Avani MARTINeDOB: [birth year] (89 yo F)Acc No.[id number]:02/01/2025 Progress Note Patient: Andres FILOMENAAvani Maya Provider: Bennett Ansari DPM :1935 A ge:89 Y S ex:Female Date:02/01/2025 Address:[address] [place] [address] Pcp:Edith Ku Subjective: * Chief Complaints: * A t Risk FootcarePainful Nail(s) aggravated by shoes and causing difficulty standing/walking. * HPI: A t Risk footcare: Pt States Last PCP Visit: D ate 0 08/02/2024 [facility] Shanna hua has an appt with PCP later this month. * ROS: G eneral/Constitutional: Nausea d enies. V omiting d enies. H jean Thirst d enies. L oss appetite d enies. C hills d enies. F atigue d enies.?Fever d enies. N ight Sweats d enies. U nexplained weight loss d enies. U nexplained weight gain d enies. H EENTM: Dentures d enies. D izziness d enies. G lasses/contacts a dmits. R etinopathy d enies. B lurred/double vision d enies. T MJ?denies. D ischarge/drainage d enies. I mplants d enies. S ore throat d enies. D ental implants d enies. H otis of hearing d enies. D ifficulty chewing/swallowing/speaking d enies. N ose bleeds d enies. S ore mouth d enies. ? R espiratory: On Oxygen d enies. P neumonia/pleurisy d enies.?Bronchitis d enies. E mphysema d enies. C oughing d enies. C ough blood?denies. S hortness of breath d enies. W heezing d enies. C ardiovascular: Pacemaker d enies. M MACHINE RUG CLEANER d enies. W PW d enies. C HF d enies. H eart attack d enies. S eptal defect d enies. R apid beat d enies. C hest pain d enies. A trial Fib. d enies. M urmur/Palpitations d enies. G astrointestinal: Hemorrhoids d enies. S tomach/Abdominal pain d enies. D ark blood stool d enies. I rritable bowel d enies. C onstipation d enies. D iarrhea d enies. H ematology: Swelling a dmits. C lots d enies. V aricose Veins a dmits. B ruising d enies. B leeding problem d enies. G enitourinary: Blood urine d enies. F requent/Painfu/urination/bladder control d enies. K idney stones d enies. I nfection (UTI) d enies. N ephropathy d enies. s ex trans dis (STD) d enies. P rostate d enies. M usculoskeletal: Hammertoes a dmits. B unions a dmits. B ack Pain d enies. M uscle Cramps/ Resting d enies. M uscle cramps / walking d enies.?Generalized aches and pains d enies. W eakness d enies. I nteg.: Van a dmits. S cars d enies. C orns/calluses?admits. I ngrown nails a dmits. P ainful nails a dmits. O pen Sores d enies. R ashes d enies. N eurologic: Difficulty sleeping d enies. B rain disorder d enies. N umbness d enies. B alance trouble d enies. C onfusion d enies. F ainting/blackouts d enies. T ingling d enies. T remors d enies. * Medical History: * Surgical History: N o Surgical History documented. * Hospitalization/Major Diagno stic Procedure: N o Hospitalization History. * Family History: M other: . F ather: . * Social History: T obacco Use: T obacco use other than smoking A re you an other tobacco user? N o Tobacco Control (Standard) T obacco use: N onsmoker A dditional Findings: Tobacco non-user C urrent nonsmoker D rugs/Alcohol: D rugs H ave you used drugs other than those for medical reasons in the past 12 months? N o M iscellaneous: C affeine: yes, 2-3 cups per day. Children: yes, 1. Exercise: no. Marital status: . Occupation: Unemployed. D rug/Alcohol: A MARIUM-C (Standard) D id you have a drink containing alcohol in the past year? N o P oints 0 I nterpretation N egative * Medications: T akingVabysmo Multivitamin Atenolol 25 MG Tablet 1 tablet Orally Once a day Medication List reviewed and reconciled with the patientTaking Vabysmo Taking Multivitamin Taking Atenolol 25 MG Tablet 1 tablet Orally Once a day Medication List reviewed and reconciled with the patient * Allergies: E rythromycinyes[Allergies Verified] Objective: * Vitals: H t: 5 ft 4 in, Wt: 143, BMI: 24.54, Shoe size: 8.5-9W, BP: 130/60 mm Hg, Ht-cm: 162.56 cm, Wt-k.86 kg. * Examination: V ascular: DP PULSES (B): 0/4, B/L. PT PULSES (B): 0/4, B/L. CAPILLARY FILL TIME: delayed, all digits, B/L. TROPHIC CONDITION-TEXTURE/ELASTICITY/TURGOR/HAIR GROWTH (B):? decreased, with sparse to absent hair growth, B/L. TEMPERTURE GRADIENT (C): decreased, cool to cool, proximal to distal, B/L. PIGMENTATION: m ottled, B/L. EDEMA (C): 1 /4 , non-pitting , without aching pain , Leg(s) , Ankle(s) , Foot , B/L. CLAUDICATION (C): d enies, B/L. REST PAIN: d enies, B/L. N ails: NAILS are: Elongated, overgrown, dystrophic, lytic, greater than 3mm thick, discolored and friable with crumbly malodorous subungual debris, with pain on palpation, T1, T2, T3, T6, T7, T8, remaining nails are elongated, overgrown, dystrophic. ? D ermatologic: SKIN FINDINGS: S kin exam reveals Keratotic lesion(s) located at , Plantar, T2, SUB MTH (s) , 1 , B/L. Assessment: * Assessment: 1. T inea unguium - B35.1 2 . A therosclerosis of unga artery of both lower extremities, with unspecified presence of clinical manifestation - I70.203 (Primary) ?Specify :Q8 N otes :Q7(A), Q8(2B), Q9(1B,2C) 3 . P ain in right toe(s) - M79.674 4 . P ain in left toe(s) - M79.675 Plan: * Treatment: 2. T inea unguium P rocedure: 10997-IKCDOYF NAIL, 6 OR MORE * Procedures: D ebride Nail 6-10: Nail debridement D ue to the clinical pathology outlined in the exam findings, performance of this nail treatment is medically necessary as its management by an unskilled/untrained nonprofessional would put this patients foot and overall health at risk. Therefore, debridement to affected nail(s), as described in exam ( T1, T2, T3, T6, T7, T8 ), was performed exclusively by the physician of record to reduce/remove overall nail length, girth, thickness, subungual debris, and necrotic tissue, by manual and/or electrical means through the use of a nail nipper and/or dremel-type grinder operator external tool, to a more viable healthy nail plate [...] to maintain effectiveness in symptomatic relief - 01462. K eratoma Treatment: Parring or Cutting of Benign Hyperkeratotic Lesion(s) ( -56) 2-4 Lesions - Due to the at risk nature of the patients medical condition as documented in the exam findings, performance of this keratoderma treatment is medically necessary as its management by an unskilled/untrained nonprofessional would put this patients foot and overall health at risk. Therefore, the benign hyperkeratotic lesions, (3 ) in total, locations as stated and described in the exam ( Plantar, T2, SUB MTH (s) , 1 , B/L ), were pared, and/or cut utilizing a sterile 15 blade, tissue nippers, and/or power dremel instrumentation by the physician of record - 42011, Q8. ? * Procedure Codes: 1 1721 DEBRIDE NAIL, 6 OR MORE, Modifiers: XS 87250 TRIM SKIN LESIONS, 2 TO 4, Modifiers: XS , Q8 * Follow Up: p rn * Images: * Sign off status: Completed true * Provider: Bennett Ansari DPM Date: Generated for Apoorva sharif/Jonathan/Pippa on: 03:47 PM EDT History and Physical Notes * HPI (History of Present Illness) Category Sub-Category Detail Notes Category Not es At Risk footcare Pt States Last PCP Visit: Date: 5 [facility] States has an appt w [facility] PCP later this month Examination Category Sub-Category Detail Notes Category Not [...]
--- OUTSIDE RECORDS SUMMARY | 2025-02-01 15:48 | XMS_ITS | Patient Health Record ---
Author Organization [facility] Address [address] [place] [address] Care Team Providers Care Atlassian Administrator Name Role Phone KingsEdith estrada Primary Care Provider Cruz Evangelista Unavailable [phone] Allergies Allergen (clinical drug ingredient) Drug/Non Drug [...] ast year? No Points 0 Interpretation Negative Problems Problem Type SNOMED Code ICD Code Onset Dates Problem Status W/U Status Risk Notes Problem Bilateral atherosclerosis of arteries of lower limbs (disorder) ([id number] ) Atherosclerosis of [place]iat[place] artery of both lower extremities, with unspecified presence of clinical manifestation (I70.203) Active confirmed Q7(A), Q8(2B), Q9(1B,2 C) Vital Signs Blood pressure diastolic 60 mm Hg 02/01/2025 Height 5 ft 4 in in 02/01/2025 Blood pressure systolic 130 mm Hg 02/01/2025 Weight 143 lbs 02/01/2025 BMI 24.54 kg/m2 02/01/2025 Procedures Procedure Date Ordered Date Performed Result Body Sit e 40810-XGGSNGC NAIL, 6 OR MORE 02/03/2024 N/A 31520-USVT SKIN LESIONS, 2 TO 4 02/03/2024 N/A 94199-ZZOPNQC NAIL, 6 OR MORE 05/04/2024 N/A 54700-WEFO SKIN LESIONS, 2 TO 4 05/04/2024 N/A 65030-WHCHIBY NAIL, 6 OR MORE 08/10/2024 N/A 09318-KJVM SKIN LESIONS, 2 TO 4 08/10/2024 N/A 33366-YBZTYPI NAIL, 6 OR MORE 02/01/2025 N/A 67918-QTTX SKIN LESIONS, 2 TO 4 02/01/2025 N/A Encounters Encounter Location Date Provider Diagnosis [address] [address] 02/03/2024 Cruz Coty Atherosclerosis of yu[place]iat[place] artery of both lower extremities, with unspecified presence of clinical manifestation I70.203 ; Tinea unguium B35.1 ; Pain in right toe(s) M79.674 and Pain in left toe(s) M79.[address] [address] 05/04/2024 Cruz Coyt Atherosclerosis of [place]iat[place] artery of both lower extremities, with unspecified presence of clinical manifestation I70.203 ; Tinea unguium B35.1 ; Pain in right toe(s) M79.674 and Pain in left toe(s) M79.[address] [address] 08/10/2024 Cruz Coty Atherosclerosis of [place]iat[place] artery of both lower extremities, with unspecified presence of clinical manifestation I70.203 ; Tinea unguium B35.1 ; Pain in right toe(s) M79.674 and Pain in left toe(s) M79.[address] [address] 02/01/2025 Cruz Coty Atherosclerosis of [place]iat[place] artery of both lower extremities, with unspecified presence of clinical manifestation I70.203 ; Tinea unguium B35.1 ; Pain in right toe(s) M79.674 and Pain in left toe(s) M79.675 Assessments Encounter Date Diagnosis (ICD Code) Assessment Notes Treatment Notes Treatment Clinical Notes Section Notes 02/03/2024 Tinea unguium (ICD-10 - B35.1) 02/03/2024 Atherosclerosis of [place]aviatam artery of both lower extremities, with unspecified presence of clinical manifestation (ICD-10 - I70.203) Q7(A), Q8(2B), Q9(1B,2C) 05/04/2024 Tinea unguium (ICD-10 - B35.1) 05/04/2024 Atherosclerosis of [place]iat[place] artery of both lower extremities, with unspecified presence of clinical manifestation (ICD-10 - I70.203) Q7(A), Q8(2B), Q9(1B,2C) 08/10/2024 Tinea unguium (ICD-10 - B35.1) 08/10/2024 Atherosclerosis of [place]uhaaviat[place] artery of both lower extremities, with unspecified presence of clinical manifestation (ICD-10 - I70.203) Q7(A), Q8(2B), Q9(1B,2C) 02/01/2025 Tinea unguium (ICD-10 - B35.1) 02/01/2025 Atherosclerosis of yuhaaviatam artery of both lower extremities, with unspecified presence of clinical manifestation (ICD-10 - I70.203) Q7(A), Q8(2B), Q9(1B,2C) 02/01/2025 Pain in right toe(s) (ICD-10 - M79.674) 05/04/2024 Pain in right toe(s) (ICD-10 - M79.674) 08/10/2024 Pain in right toe(s) (ICD-10 - M79.674) 02/03/2024 Pain in right toe(s) (ICD-10 - M79.674) 02/03/2024 Pain in left toe(s) (ICD-10 - M79.675) 08/10/2024 Pain in left toe(s) (ICD-10 - M79.675) 05/04/2024 Pain in left toe(s) (ICD-10 - M79.675) 02/01/2025 Pain in left toe(s) (ICD-10 - M79.675) Plan Of Treatment Pending Test Test Name Order Date 03918-KLBJGDU NAIL, 6 OR MORE 10/28/2023 76106-YWIURLY NAIL, 6 OR MORE 02/03/2024 93041-OPJXODS NAIL, 6 OR MORE 05/04/2024 51443-GKFYRPY NAIL, 6 OR MORE 08/10/2024 38989-KOABBJR NAIL, 6 OR MORE 02/01/2025 64082-VZJX SKIN LESIONS, 2 TO 4 02/02/20 25 34117-FWNV SKIN LESIONS, 2 TO 4 08/11/19 25 73313-XHMW SKIN LESIONS, 2 TO 4 05/04/19 25 08909-AUBF SKIN LESIONS, 2 TO 4 02/03/20 24 56750-XHZY SKIN LESIONS, 2 TO 4 10/28/19 24 Next Appt Details Provider Name:Cruz Ansari , 05/31/2025 10:45:00 AM, [address] [place], [address], Insurance Providers Payer Name Payer Address Payer Phone Subscriber Number Group Number Insured Name Patient Relationship to Insured Coverage Start Date Coverage End Date Medicare [employer] [address] [place] [address] [phone] [id number] Avani Lopez Self - patient is the insured [facility] ([facility]) [address] [place] [address] [id number] Avani Lopez Self - patient is the insured Medical (General) History Medical History History ICD Code Macular degeneration Measles Mumps Chicken pox Hypertension shots in eye every 7 weeks left Surgical History Surgery Date(Month/Year)
[2025-02-01 16:23] LABS: MANUAL DIFF FLAG NO
[2025-02-01 16:33] LABS: Hematocrit 31.2 % (37.0-47.0); Hemoglobin 9.6 g/dl (12.0-16.0); Imm Gran Abs Auto 0.01 X10*3/uL (0.00-0.03); Imm Gran Pct Auto 0.2 % (0.0-0.4); Lymphocytes Absolute Auto 2.6 X10*3/uL (1.2-4.9); Mean Corpuscular HGB Conc 30.8 g/dl (31.0-35.0); Mean Corpuscular Hemoglobin 24.6 pg (27.0-33.0); Mean Corpuscular Volume 80.0 fL (80.0-98.0); NRBC Abs Auto 0.020 X10*3/uL (0.0-0.012); NRBC Pct Auto 0.3 /100WBC (0.0-0.2); Platelet Count 382 X10*3/uL (160-400); Red Blood Count 3.90 X10*6/uL (4.20-5.50); White Blood Count 5.9 X10*3/uL (4.8-10.8)
[2025-02-01 17:18] LABS: Alanine Aminotransferase 9 U/L (0-31); Albumin Level 4.4 g/dL (3.5-5.0); Alkaline Phosphatase 78 U/L (39-117); Anion Gap 12 (12-20); Aspartate Amino Transferase 18 U/L (5-31); Blood Urea Nitrogen 10 mg/dL (9-16); Calcium 9.4 mg/dL (8.4-10.2); Carbon Dioxide 26 mmol/L (22-29); Chloride 107 mmol/L (96-108); Estimated Glomerular Filt Rate > 60; Folate 13.5 ng/mL (> or = 4.0); Iron 29 mcg/dL (30-160); Percent Iron Saturation 12 % (15-50); Potassium 4.3 mmol/L (3.3-5.1); Sodium 141 mmol/L (135-145); Total Iron Binding Capacity 238 mcg/dL (228-428); Total Protein 6.8 g/dL (6.5-8.0); Unsaturated Iron Binding 209 ug/dL; Vitamin B12 > 2000 pg/mL (200-900)
== END 2025-02-01 13:06 | disposition home or self-care (01) ==
LOC: HO.HMGCLDS 13:05
PROVIDERS: PCP Internal Medicine; Visit Provider Internal Medicine
DX: Z13.220 Encounter for screening for lipoid disorders (principal); Z13.228 Encounter for screening for other metabolic disorders; I10 Essential (primary) hypertension; I45.10 Unspecified right bundle-branch block
CPT/HCPCS: 36415; 80053; 82607; 82746; 83540; 85025